=== PATIENT | female | born 1960 | race Caucasian/White ===

== ENCOUNTER 2019-08-27 14:55 | Inpatient (IN) | payer BC, OTHER ==
[~2019-08-27] VITALS: Ht 172 cm; Wt 117.0 kg
--- NOTE | 2019-08-27 15:22 | ED Chest Pain ---
General Stated Complaint: HIGH BP;SOA Source: patient, family (daughter via phone) Exam Limitations: no limitations History of Present Illness Date Seen by Provider: Aug 27, 2019 Time Seen by Provider: 15:09 Initial Comments Patient arrives the ER by private conveyance with her daughter and chief complaint of chest pain constant for the past 3 weeks substernal radiating to the left breast. She has no personal history of coronary disease but her father early of heart disease when she was still young. She denies recreational drug use. She has an occasional beer. She quit smoking one year ago by a pack pe r day. She denies a history of diabetes but does have hyperlipidemia and hypertension. She says her daughter knows all of her medications. The past 3 weeks she's went several times to [facility] emergency room and yesterday she was discharged after observation stay and serial troponins. She has not had a heart catheterization stents or heart attack. She does not have follow-up with virtual reality specialist. She follows with Dr. Kyle for primary care. She also noted before coming in that her blood pressure was very high 220/117 and her heart rate was elevated. Patient reports that he had multiple CTs of her chest as well as EKGs chest x-rays and a stress test but no heart catheterization. She said she did not have any follow-up and she was discharged. She thought she was going to [facility] and she says they told her just to go home. She says nitroglycerin which she tripped on her way here from [place] did help a little bit. She still rates her pain as a 9 out of 10. She says the Ativan and morphine also help her pain. Daughter relays the patient was in [facility] overnight Saturday and released Saturday after a negative stress test. Plan was to follow-up with primary care doctor tomorrow. She is put out on Symbicort and albuterol. She had a negative COVID-19 test on Saturday, 6 days ago. Plan was to get a CT of her chest outpatient. Allergies and Home Medications Allergies Coded Allergies: ibuprofen (Verified Allergy, Unknown, 08/27/19) Patient Home Medication List Home Medication List Reviewed: Yes Review of Systems Review of Systems Constitutional: No chills, No fever, No malaise EENTM: No Blurred Vision, No Double Vision Respiratory: Denies Cough, Denies Shortness of Air Cardiovascular: Chest Pain; Denies Edema Gastrointestinal: Denies Abdominal Pain, Denies Constipated, Denies Diarrhea, Denies Nausea Genitourinary: Denies Burning, Denies Discharge Musculoskeletal: No back pain, No joint pain Skin: No pruritus, No rash Psychiatric/Neurological: Denies Headache, Denies Numbness All Other Systems Reviewed Negative Unless Noted: Yes Past Tmqragi-Rlxioa-Mbaueu Hx Patient Social History Alcohol Use: Occasionally Uses Recreational Drug Use: No Smoking Status: Former Smoker Type Used: Cigarettes Former Smoker, Quit: Aug 09, 2018 Physical Exam Vital Signs Vital Signs - First Documented 08/27/19 08/27/19 15:00 16:18 Temp 36.9 Pulse 107 Resp 21 B/P (MAP) 162/103 (122) Pulse Ox 97 O2 Delivery Room Air O2 Flow Rate 2.00 Capillary Refill : Height, Weight, BMI Height: '" Weight: lbs. oz. kg; BMI Method: General Appearance: No Apparent Distress, WD/WN HEENT: PERRL/EOMI, TMs Normal, Normal ENT Inspection, Pharynx Normal, Moist Mucous Membranes Neck: Full Range of Motion, Normal Inspection, Non Tender Respiratory: No Chest Non Tender (Chest pain reproducible to direct palpation over the sternum); Lungs Clear, Normal Breath Sounds, No Accessory Muscle Use, No Respiratory Distress Cardiovascular: Regular Rate, Rhythm, Normal Peripheral Pulses Gastrointestinal: Normal Bowel Sounds, Non Tender, Soft Extremity: Normal Capillary Refill, Normal Inspection, No Pedal Edema Neurologic/Psychiatric: Alert, Oriented x3, No Motor/Sensory Deficits Skin: Normal Color, Warm/Dry Focused Exam Lactate Level 08/27/19 15:00: Lactic Acid Level 1.77 Lactic Acid Level Laboratory Tests Test 08/27/19 15:00 Lactic Acid Level 1.77 MMOL/L (0.50-2.00) Progress/Results/Core Measures Results/Orders Lab Results Laboratory Tests Test 08/27/19 15:00 Range/Units White Blood Count 11.3 H 4.3-11.0 10^3/uL Red Blood Count 4.42 4.35-5.85 10^6/uL Hemoglobin 13.0 11.5-16.0 G/DL Hematocrit 38 35-52 % Mean Corpuscular Volume 85 80-99 FL Mean Corpuscular Hemoglobin 29 25-34 PG Mean Corpuscular Hemoglobin Concent 35 32-36 G/DL Red Cell Distribution Width 14.8 H 10.0-14.5 % Platelet Count 264 130-400 10^3/uL Mean Platelet Volume 9.4 7.4-10.4 FL Neutrophils (%) (Auto) 65 42-75 % Lymphocytes (%) (Auto) 28 12-44 % Monocytes (%) (Auto) 6 0-12 % Eosinophils (%) (Auto) 1 0-10 % Basophils (%) (Auto) 0 0-10 % Neutrophils # (Auto) 7.4 1.8-7.8 X 10^3 Lymphocytes # (Auto) 3.2 1.0-4.0 X 10^3 Monocytes # (Auto) 0.7 0.0-1.0 X 10^3 Eosinophils # (Auto) 0.1 0.0-0.3 10^3/uL Basophils # (Auto) 0.0 0.0-0.1 10^3/uL Erythrocyte Sedimentation Rate 24 0-30 MM/HR Prothrombin Time 12.3 12.2-14.7 SEC INR Comment 0.9 0.8-1.4 Activated Partial Thromboplast Time 24 24-35 SEC D-Dimer 0.33 0.00-0.49 UG/ML Sodium Level 139 135-145 MMOL/L Potassium Level 4.1 3.6-5.0 MMOL/L Chloride Level 105 98-107 MMOL/L Carbon Dioxide Level 23 21-32 MMOL/L Anion Gap 11 5-14 MMOL/L Blood Urea Nitrogen 14 7-18 MG/DL Creatinine 0.72 0.60-1.30 MG/DL Estimat Glomerular Filtration Rate > 60 BUN/Creatinine Ratio 19 Glucose Level 165 H 70-105 MG/DL Lactic Acid Level 1.77 0.50-2.00 MMOL/L Calcium Level 8.9 8.5-10.1 MG/DL Corrected Calcium 9.0 8.5-10.1 MG/DL Magnesium Level 1.8 1.6-2.4 MG/DL Total Bilirubin 0.2 0.1-1.0 MG/DL Aspartate Amino Transf (AST/SGOT) 43 H 5-34 U/L Alanine Aminotransferase (ALT/SGPT) 75 H 0-55 U/L Alkaline Phosphatase 95 40-136 U/L Lactate Dehydrogenase 207 125-220 U/L Myoglobin 25.9 10.0-92.0 NG/ML Troponin I 0.270 H <0.028 NG/ML C-Reactive Protein High Sensitivity 0.75 H 0.00-0.50 MG/DL B-Type Natriuretic Peptide 64.4 <100.0 PG/ML Total Protein 7.3 6.4-8.2 GM/DL Albumin 3.9 3.2-4.5 GM/DL Lipase 59 8-78 U/L Procalcitonin 0.03 <0.10 NG/ML My Orders Orders - [place] Cbc With Automated Diff (08/27/19 15:17) Magnesium (08/27/19 15:17) Ekg Tracing (08/27/19:) Comprehensive Metabolic Panel (08/27/19 15:) Myoglobin Serum (08/27/19 15:17) Protime With Inr (08/27/19 15:) Partial Thromboplastin Time (08/27/19 15:17) O2 (08/27/19 15:17) Monitor-Rhythm Ecg Trace Only (08/27/19 15:17) Ed Iv/Invasive Line Start (08/27/19 15:17) Lipase (08/27/19 15:17) BNP (08/27/19 15:17) Troponin I (08/27/19 15:17) Nitroglycerin 0.4 Mg Btl 25's (Nitrostat (08/27/19 15:30) Aspirin Chewable Tablet (Baby Aspirin Ch (08/27/19 15:30) Ua Culture If Indicated (08/27/19 15:27) Drug Screen Stat (Urine) (08/27/19 15:27) Blood Culture (08/27/19 15:27) Lactic Acid Analyzer (08/27/19 15:27) Hs C Reactive Protein (08/27/19 15:27) Erythrocyte Sedimentation Rate (08/27/19 15:27) LDH (08/27/19 15:27) Procalcitonin (Pct) (08/27/19 15:27) Fibrin Degradation Products (08/27/19 15:00) Ed Iv/Invasive Line Start (08/27/19 16:03) Ns Iv 1000 Ml (Sodium Chloride 0.9%) (08/27/19 16:03) Morphine Injection (Morphine Injection (08/27/19 16:03) Chest 1 View, Ap/Pa Only (08/27/19 16:22) Enoxaparin Injection (Lovenox Injection) (08/27/19 16:45) Medications Given in ED Current Medications Medications Dose Ordered Sig/David Route Start Time Stop Time Status Last Admin Dose Admin Aspirin 324 mg ONCE ONCE PO 08/27/19 15:30 08/27/19 15:31 DC 08/27/19 15:37 324 MG Enoxaparin Sodium 120 mg ONCE ONCE SC 08/27/19 16:45 08/27/19 16:46 DC 08/27/19 17:00 120 MG Nitroglycerin 0.4 mg UD PRN SL 08/27/19 15:30 08/27/19 16:07 DC 08/27/19 16:06 0.4 MG Vital Signs/I&O 08/27/19 08/27/19 08/27/19 15:00 15:20 16:18 Temp 36.9 Pulse 107 Resp 21 B/P (MAP) 162/103 (122) Pulse Ox 97 90 O2 Delivery Room Air Room Air Nasal Cannula O2 Flow Rate 2.00 Progress Progress Note : Time: 15:30 Progress Note Because of the different story given by the patient and the daughter I suspect maybe some comprehension difficulty. Plan to get a CT angiogram, labs including a septic workup as well as cardiac workup. She is not having a fever for 3 weeks of pain and a negative stress test on Saturday points us to start. She had a negative COVID-19 screening 6 days ago however if no other answers found then I would not be against repeating it. Nitroglycerin for pain. 324 Milligrams aspirin ordered. Hold off on IV fluids until we have a suspected infectious source. Her blood pressure is only 160/100 presently however if it was as high as she says otherwise she would be with hypertensive emergency. We will continue to monitor. With a normal troponin should have a heart score 4 points and I would suggest observation. Initial ECG Impression Date: Aug 27, 2019 Initial ECG Impression Time: 15:00 Initial ECG Rate: 97 Initial ECG Rhythm: Normal Sinus Initial ECG Intervals: Normal Initial ECG Impression: Normal Initial ECG Comparisson: No Previous ECG Available Comment Normal sinus rhythm without ST elevation or depression. Diagnostic Imaging Diagonstic Imaging: Xray Plain Films/CT/US/NM/MRI: chest (1v) Comments No acute cardiopulmonary processes noted on one view chest x-ray. Reviewed: Reviewed by Me Departure Communication (Admissions) Time/Spoke to Admitting Phy: 16:31 Discussed the case with Dr. Duke, internal medicine and she agrees to observe the patient overnight. Time/Spoke to Consulting Phy: 16:30 Discussed the case with Dr. Juarez, cardiology and he would like a dose of Lovenox, nothing by mouth midnight and plan to get a heart catheter in the morning. Impression Primary Impression: Non-STEMI (non-ST elevated myocardial infarction) Disposition: ADMITTED INPATIENT Condition: Stable Admissions Decision to Admit Reason: Admit from ER (General) Decision to Admit/Date: Aug 27, 2019 Time/Decision to Admit Time: 16:15 [place] Aug 27, 2019 15:22
[2019-08-27 15:26] LABS: BASOPHILS % (AUTO) 0 % (0-10); EOSINOPHILS # (AUTO) 0.1 10^3/uL (0.0-0.3); EOSINOPHILS % (AUTO) 1 % (0-10); HEMATOCRIT 38 % (35-52); LYMPHOCYTES # (AUTO) 3.2 X 10^3 (1.0-4.0); LYMPHOCYTES % (AUTO) 28 % (12-44); MEAN CORPUSCULAR HEMOGLOBIN 29 PG (25-34); MEAN CORPUSCULAR HGB CONC 35 G/DL (32-36); MEAN CORPUSCULAR VOLUME 85 FL (80-99); MEAN PLATELET VOLUME 9.4 FL (7.4-10.4); MONOCYTES # (AUTO) 0.7 X 10^3 (0.0-1.0); MONOCYTES % (AUTO) 6 % (0-12); NEUTROPHILS # (AUTO) 7.4 X 10^3 (1.8-7.8); NEUTROPHILS % (AUTO) 65 % (42-75); PLATELET COUNT 264 10^3/uL (130-400); RED CELL DISTRIBUTION WIDTH 14.8 % (10.0-14.5); WHITE BLOOD COUNT 11.3 10^3/uL (4.3-11.0)
[2019-08-27] MEDS ORDERED: ASPIRIN 81 MG CHEW (CHILDREN'S ASA) PO ONE (15:30)
[2019-08-27 15:34] LABS: ALBUMIN 3.9 GM/DL (3.2-4.5)
[2019-08-27 15:35] LABS: CHLORIDE 105 MMOL/L (98-107); POTASSIUM 4.1 MMOL/L (3.6-5.0); SODIUM 139 MMOL/L (135-145)
[2019-08-27 15:36] LABS: CALCIUM 8.9 MG/DL (8.5-10.1)
[2019-08-27 15:37] LABS: GLUCOSE 165 MG/DL (70-105); TOTAL PROTEIN 7.3 GM/DL (6.4-8.2)
[2019-08-27] MEDS: NITROGLYCERIN 0.4 MG SL TABS BTL 25'S SL PRN ×5 (15:37→21:02)
[2019-08-27 15:38] LABS: CARBON DIOXIDE 23 MMOL/L (21-32)
[2019-08-27 15:39] LABS: BILIRUBIN,TOTAL 0.2 MG/DL (0.1-1.0)
[2019-08-27 15:40] LABS: ALKALINE PHOSPHATASE 95 U/L (40-136)
[2019-08-27 15:41] LABS: CREATININE SERUM 0.72 MG/DL (0.60-1.30); GFR ESTIMATED > 60
[2019-08-27 15:42] LABS: BUN/CREATININE RATIO 19
[2019-08-27 15:43] LABS: ALANINE AMINOTRANSFERASE 75 U/L (0-55); MAGNESIUM 1.8 MG/DL (1.6-2.4)
[2019-08-27 15:44] LABS: LIPASE 59 U/L (8-78)
[2019-08-27] MEDS ORDERED: NS IV 1000 ML 1,000 ML IV SCH (16:03)
[2019-08-27] MEDS ORDERED: morphine INJ 10 MG/ML 1ML (SYR OR VIAL) IVP STA (16:03)
[2019-08-27 16:13] LABS: FIBRIN DEGRADATION PRODUCTS 0.33 UG/ML (0.00-0.49); INR 0.9 (0.8-1.4); PROTHROMBIN TIME PATIENT 12.3 SEC (12.2-14.7)
[2019-08-27] MEDS ORDERED: ENOXAPARIN 60 MG/0.6 ML (LOVENOX) SYR SC ONE (16:45)
--- NOTE | 2019-08-27 16:56 | Diagnostic Imaging Report ---
INDICATION: Shortness of air. FINDINGS: Heart and lungs appear normal. No failure, effusion, or pneumothorax. IMPRESSION: Negative. Dictated by: Dictated on workstation # [id number]
[2019-08-27 17:24] VITALS: BP 154/94
--- NOTE | 2019-08-27 17:28 | NUR ---
This nurse called ED at 1868 requesting patients admission orders, I spoke with Disha ROBISON she stated that the orders would be sent up soon
--- NOTE | 2019-08-27 18:42 | NUR ---
This nurse called [facility] to ask for the admission orders to be sent up to me, there was no answer.
--- OUTSIDE RECORDS SUMMARY | 2019-08-27 19:41 | XMS REPORT | Continuity of Care Document ---
Demographics Preferred Language Unknown Marital Status Unknown Evangelical Affiliation Unknown Race Unknown Ethnic Group Unknown Author Organization Unknown Address Unknown Phone Unavailable Allergies There is no data. Medications There is no data. Problems There is no data. Procedures There is no data. Results Test Result Range Complete blood count (CBC) with automate d white blood cell (WBC) differential - 08/27/19 15:00 Blood leukocytes automated count (number/volume) 11.3 10*3/uL 4.3-11.0 Blood erythrocytes automated count (number/volume) 4.42 10*6/uL 4.35-5.85 Venous blood hemoglobin measurement (mass/volume) 13.0 g/dL 11.5-16.0 Blood hematocrit (volume fraction) 38 % 35-52 Automated erythrocyte mean corpuscular volume 85 [ foz_us] 80-99 Automated erythrocyte mean corpuscular h emoglobin (mass per erythrocyte) 29 pg 25-34 Automated erythrocyte mean corpuscular h emoglobin concentration measurement (mass/volume) 35 g/dL 32-36 Automated erythrocyte distribution width ratio 14. 8 % 10.0- 14.5 Automated blood platelet count (count/volume) 264 10*3/uL 130-400 Automated blood platelet mean volume measurement 9.4 [foz_us] 7.4-10.4 Automated blood neutrophils/100 leukocytes 65 % 42-75 Automated blood lymphocytes/100 leukocytes 28 % 12-44 Blood monocytes/100 leukocytes 6 % 0-12 Automated blood eosinophils/100 leukocytes 1 % 0-10 Automated blood basophils/100 leukocytes 0 % 0-10 Blood neutrophils automated count (number/volume) 7.4 10*3 1.8-7.8 Blood lymphocytes automated count (number/volume) 3.2 10*3 1.0-4.0 Blood monocytes automated count (number/volume) 0. 7 10*3 0.0-1.0 Automated eosinophil count 0.1 10*3/uL 0 .0-0.3 Automated blood basophil count (count/volume) 0.0 10*3/uL 0.0-0.1 Comprehensive metabolic panel - 08/27/19 15:00 Serum or plasma sodium measurement (moles/volume) 139 mmol/L 135-145 Serum or plasma potassium measurement (moles/volume) 4.1 mmol/L 3.6-5.0 Serum or plasma chloride measurement (moles/volume) 105 mmol/L 98-107 Carbon dioxide 23 mmol/L 21-32 Serum or plasma anion gap determination (moles/volume) 11 mmol/L 5-14 Serum or plasma urea nitrogen measurement (mass/volume ) 14 mg/dL 7-18 Serum or plasma creatinine measurement (mass/volume) 0.72 mg/dL 0.60-1.30 Serum or plasma urea nitrogen/creatinine mass ratio 19 NRG Serum or plasma creatinine measurement w ith calculation of estimated glomerular filtration rate > NRG Serum or plasma glucose measurement (mass/volume) 165 mg/dL 70-105 Serum or plasma calcium measurement (mass/volume) 8.9 mg/dL 8.5-10.1 Serum or plasma total bilirubin measurement (mass/volu me) 0.2 mg/dL 0.1-1.0 Serum or plasma alkaline phosphatase mt surement (enzymatic activity/volume) 95 U/L 40-136 Serum or plasma aspartate aminotransfera se measurement (enzymatic activity/volume) 43 U/L 5-34 Serum or plasma alanine aminotransferase measurement (enzymatic activity/volume) 75 U/L 0-55 Serum or plasma protein measurement (mass/volume) 7.3 g/dL 6.4-8.2 Serum or plasma albumin measurement (mass/volume) 3.9 g/dL 3.2-4.5 CALCIUM CORRECTED 9.0 mg/dL 8.5-10.1 Blood lactic acid measurement (moles/vol ume) - 08/27/19 15:00 Blood lactic acid measurement (moles/volume) 1.77 mmol/L 0.50-2.00 Magnesium - 08/27/19 15:00 Magnesium 1.8 mg/dL 1.6-2.4 Myoglobin, serum - 08/27/19 15:00 Myoglobin, serum 25.9 ng/mL 10.0-92.0 Serum or plasma troponin i.cardiac measu rement (mass/volume) - 08/27/19 15:00 Serum or plasma troponin i.cardiac measurement (mass/v olume) 0.270 ng/mL <0.028 Lipase - 08/27/19 15:00 Lipase 59 U/L 8-78 Erythrocyte sedimentation rate by zeenat gren method - 08/27/19 15:00 Erythrocyte sedimentation rate by westergren method 24 mm 0- 30 Serum ragweed IgE antibody assay - 08/26 15:00 Serum ragweed IgE antibody assay 207 U/L 125-220 PROCALCITONIN (PCT) - 08/27/19 15:00 PROCALCITONIN (PCT) 0.03 ng/mL <0.10 PT panel in platelet poor plasma by coag ulation assay - 08/27/19 15:00 Prothrombin time (PT) in platelet poor plasma by coagu lation assay 12.3 s 12.2-14.7 INR in platelet poor plasma or blood by coagulation as say 0.9 0.8-1.4 Activated partial thromboplastin time (a PTT) in platelet poor plasma bycoagulation assay - 08/27/19 15:00 Activated partial thromboplastin time (a PTT) in platelet poor plasma bycoagulation assay 24 s 24-35 Fibrin D-dimer FEU measurement in platel et poor plasma (mass/volume) - 08/27/19 15:00 Fibrin D-dimer FEU measurement in platelet poor plasma (mass/volume) 0.33 ug/mL 0.00-0.49 Serum or plasma lithium measurement (mol es/volume) - 08/27/19 15:00 BNP PT 64.4 pg/mL <100.0 Serum or plasma C reactive protein measu rement (mass/volume) - 08/27/19 15:00 Serum or plasma C reactive protein measurement (mass/v olume) 0.75 mg/dL 0.00-0.50 Encounters ACCT No. Visit Date/Time Discharge Status Pt. Type Provider Facility Loc./Unit Complaint [id number] 08/27/2019 15:27:00 Document Registration
[2019-08-27] MEDS ORDERED: CATHETER FLUSH 10 ML SYR IV PRN (19:45)
[2019-08-27] MEDS ORDERED: ACETAMINOPHEN 500 MG TAB (TYLENOL) PO PRN (19:45)
[2019-08-27] MEDS ORDERED: LACTATED RINGERS 1,000 ML IV SCH (19:45)
[2019-08-27 20:00] VITALS: BP 126/73
[2019-08-27] MEDS ORDERED: FUROSEMIDE 40 MG/4 ML INJ (LASIX) IVP PRN (21:15)
[2019-08-27] MEDS ORDERED: KETOROLAC 15 MG/ML VIAL IVP PRN (21:15)
--- OUTSIDE RECORDS SUMMARY | 2019-08-27 22:15 | XMS REPORT | Continuity of Care Document ---
Demographics Preferred Language Unknown Marital Status Unknown Muslim Affiliation Unknown Race Unknown Ethnic Group Unknown [...] protein measurement (mass/v olume) 0.75 mg/dL 0.00-0.50 Serum or plasma troponin i.cardiac measu rement (mass/volume) - 08/27/19 21:05 Serum or plasma troponin i.cardiac measurement (mass/v olume) 0.323 ng/mL <0.028 Serum or plasma lithium measurement (mol es/volume) - 08/27/19 21:09 BNP PT 69.8 pg/mL <100.0 Encounters ACCT No. Visit Date/Time Discharge Status Pt. Type Provider Facility Loc./Unit Complaint [id number] 08/27/2019 15:27:00 Document Registration
[2019-08-27] MEDS: LORazepam INJ 2 MG/ML (ATIVAN) VIAL IV PRN (22:18)
--- NOTE | 2019-08-27 23:28 | NUR ---
Spoke to Dr. Weeks about DVT prophylaxis- orders to wait until after heart cath to obtain orders for DVT prophylaxis.
[2019-08-28] VITALS (19 sets, daily range): BP systolic 103–166; BP diastolic 65–111
--- NOTE | 2019-08-28 00:45 | NUR ---
At the beginning of the night pt stated that her IV was bothering her every time she bent her arm. This RN checked placement of IV, IV intact and in place. I informed pt that I needed to go see my other pts then I would be rounding and backing machine operator to midnight to place a different IV and take the one in her AC out and pt had agreed she could wait. Went into pts room to check pts vital signs and change IV and pt had taken out her IV and had bleed all over her sheets. I asked pt what happened and pt stated "I took it out my damn self, it hurt too fucking bad so I just took it out". I apologized to pt for it taking longer that I orginally told her it would. Pt very upset and demanded she make her own bed, I tried to get pt to let me make her bed for her but pt insisted. Iv placed in forearm. Will continue to monitor pt.
[2019-08-28 03:44] LABS: BASOPHILS % (AUTO) 0 % (0-10); EOSINOPHILS # (AUTO) 0.2 10^3/uL (0.0-0.3); EOSINOPHILS % (AUTO) 2 % (0-10); HEMATOCRIT 35 % (35-52); HEMOGLOBIN 12.8 G/DL (11.5-16.0); LYMPHOCYTES # (AUTO) 3.5 X 10^3 (1.0-4.0); LYMPHOCYTES % (AUTO) 42 % (12-44); MEAN CORPUSCULAR HEMOGLOBIN 31 PG (25-34); MEAN CORPUSCULAR HGB CONC 36 G/DL (32-36); MEAN CORPUSCULAR VOLUME 86 FL (80-99); MEAN PLATELET VOLUME 9.7 FL (7.4-10.4); MONOCYTES # (AUTO) 0.5 X 10^3 (0.0-1.0); MONOCYTES % (AUTO) 5 % (0-12); NEUTROPHILS # (AUTO) 4.2 X 10^3 (1.8-7.8); NEUTROPHILS % (AUTO) 51 % (42-75); PLATELET COUNT 249 10^3/uL (130-400); RED CELL DISTRIBUTION WIDTH 14.6 % (10.0-14.5); WHITE BLOOD COUNT 8.3 10^3/uL (4.3-11.0)
[2019-08-28 03:50] LABS: CHLORIDE 104 MMOL/L (98-107); POTASSIUM 4.7 MMOL/L (3.6-5.0); SODIUM 135 MMOL/L (135-145)
[2019-08-28 03:51] LABS: ALBUMIN 3.4 GM/DL (3.2-4.5); CALCIUM 8.5 MG/DL (8.5-10.1)
[2019-08-28 03:53] LABS: GLUCOSE 122 MG/DL (70-105); TOTAL PROTEIN 8.4 GM/DL (6.4-8.2)
[2019-08-28 03:54] LABS: CARBON DIOXIDE 21 MMOL/L (21-32)
[2019-08-28 03:55] LABS: BILIRUBIN,TOTAL 0.2 MG/DL (0.1-1.0)
[2019-08-28 03:57] LABS: ALKALINE PHOSPHATASE 76 U/L (40-136); CHOLESTEROL 294 MG/DL (< 200); CREATININE SERUM 0.82 MG/DL (0.60-1.30)
[2019-08-28 03:58] LABS: BUN/CREATININE RATIO 18
[2019-08-28 03:59] LABS: HDL CHOLESTEROL 29 MG/DL (40-60)
[2019-08-28 04:00] LABS: ALANINE AMINOTRANSFERASE 67 U/L (0-55)
[2019-08-28 04:03] LABS: GFR ESTIMATED > 60
[2019-08-28 04:04] LABS: TRIGLYCERIDES 1619 MG/DL (<150); VLDL CHOLESTEROL 324 MG/DL (5-40)
[2019-08-28] MEDS ORDERED: BIEST (06:42)
[2019-08-28] MEDS ORDERED: PRD10T PO ×2 (06:42→12:41)
[2019-08-28] MEDS ORDERED: ACET-789 PO (06:42)
[2019-08-28] MEDS ORDERED: BUDE10.2 IH (06:42)
[2019-08-28] MEDS ORDERED: DICL100G18 TP (06:42)
[2019-08-28] MEDS ORDERED: ALPR0.5T PO (06:42)
[2019-08-28] MEDS ORDERED: RT-ALBUINH INH (06:42)
[2019-08-28] MEDS ORDERED: LIDOCAINE 1% INJ 20 ML 20 ML VIAL ONE (08:18)
[2019-08-28] MEDS ORDERED: fentaNYL INJECTION 100 MCG/2 ML AMP ONE ×2 (08:18→09:48)
[2019-08-28] MEDS ORDERED: MIDAZOLAM 5 MG/5 ML (VERSED) VIAL ONE ×2 (08:18→09:48)
[2019-08-28] MEDS ORDERED: HEParin (CATH LAB) 2,000 ML IV ONE (08:19)
--- NOTE | 2019-08-28 08:50 | Consultation-Cardiology ---
HPI-Cardiology Cardiology Consultation Date of Consultation 08/28/19 Date of Admission Time Seen by Provider: 08:46 Indication: chest pain HPI 58-year-old lady with history of hypertension, taking diltiazem. Previous smoker stopped smoking about a year ago. Has been having shortness of breath and chest pain for the past 3 weeks. Has been to [facility] twice, underwent stress test which was negative, came in to our hospital last night. Was having chest pain and shortness of breath having difficulty breathing. Denied any syncope or near syncopal episodes. Denied any claudications. Reported that she had COVID testing negative last week at [facility] noted to have mild elevation in troponin, still having some retrosternal chest pain and shortness of breath Home Medications & Allergies Allergies: Coded Allergies: ibuprofen (Verified Allergy, Unknown, 08/27/19) Home Medication List Reviewed: Yes YBY-Epdfom-Yylptv Hx Patient Social History Marital Status: Alcohol Use: Occasionally Uses Recreational Drug Use: No Smoking Status: Former Smoker Type Used: Cigarettes 2nd Hand Smoke Exposure: Yes Recent Foreign Travel: No Recent Infectious Disease Expo: No Recent Hopitalizations: Yes Past Medical History Discussed below Family Medical History Family Medical Hx Family history of atherosclerosis Family History: Patient reports no known family medical history. Review of Systems-General Review of Systems Constitutional: No chills, No fever, No malaise EENTM: see HPI, hoarseness Respiratory: see HPI; No cough; dyspnea on exertion; No hemoptysis, No orthopnea, No phlegm; short of breath; No stridor, No wheezing, No other Cardiovascular: see HPI, chest pain; No edema, No Hx of Intervention, No palpitations, No syncope, No vascular heart diseas, No other Gastrointestinal: no symptoms reported, see HPI, abdominal pain (RUQ) Genitourinary: no symptoms reported, see HPI Musculoskeletal: see HPI; No back pain, No joint pain Skin: see HPI; No pruritus, No rash Psychiatric/Neurological: See HPI; Denies Headache, Denies Numbness All Other Systems Reviewed Negative Unless Noted: Yes Reviewed Test Results Reviewed Test Results Lab Laboratory Tests Test 08/27/19 15:00 08/27/19 21:05 08/27/19 21:09 08/28/19 03:26 Range/Units White Blood Count 11.3 H 8.3 4.3-11.0 10^3/uL Red Blood Count 4.42 4.11 L 4.35-5.85 10^6/uL Hemoglobin 13.0 12.8 11.5-16.0 G/DL Hematocrit 38 35 35-52 % Mean Corpuscular Volume 85 86 80-99 FL Mean Corpuscular Hemoglobin 29 31 25-34 PG Mean Corpuscular Hemoglobin Concent 35 36 32-36 G/DL Red Cell Distribution Width 14.8 H 14.6 H 10.0-14.5 % Platelet Count 264 249 130-400 10^3/uL Mean Platelet Volume 9.4 9.7 7.4-10.4 FL Neutrophils (%) (Auto) 65 51 42-75 % Lymphocytes (%) (Auto) 28 42 12-44 % Monocytes (%) (Auto) 6 5 0-12 % Eosinophils (%) (Auto) 1 2 0-10 % Basophils (%) (Auto) 0 0 0-10 % Neutrophils # (Auto) 7.4 4.2 1.8-7.8 X 10^3 Lymphocytes # (Auto) 3.2 3.5 1.0-4.0 X 10^3 Monocytes # (Auto) 0.7 0.5 0.0-1.0 X 10^3 Eosinophils # (Auto) 0.1 0.2 0.0-0.3 10^3/uL Basophils # (Auto) 0.0 0.0 0.0-0.1 10^3/uL Erythrocyte Sedimentation Rate 24 0-30 MM/HR Prothrombin Time 12.3 12.2-14.7 SEC INR Comment 0.9 0.8-1.4 Activated Partial Thromboplast Time 24 24-35 SEC D-Dimer 0.33 0.00-0.49 UG/ML Sodium Level 139 135 135-145 MMOL/L Potassium Level 4.1 4.7 3.6-5.0 MMOL/L Chloride Level 105 104 98-107 MMOL/L Carbon Dioxide Level 23 21 21-32 MMOL/L Anion Gap 11 10 5-14 MMOL/L Blood Urea Nitrogen 14 15 7-18 MG/DL Creatinine 0.72 0.82 0.60-1.30 MG/DL Estimat Glomerular Filtration Rate > 60 > 60 BUN/Creatinine Ratio 19 18 Glucose Level 165 H 122 H 70-105 MG/DL Lactic Acid Level 1.77 0.50-2.00 MMOL/L Calcium Level 8.9 8.5 8.5-10.1 MG/DL Corrected Calcium 9.0 9.0 8.5-10.1 MG/DL Magnesium Level 1.8 1.6-2.4 MG/DL Total Bilirubin 0.2 0.2 0.1-1.0 MG/DL Aspartate Amino Transf (AST/SGOT) 43 H 44 H 5-34 U/L Alanine Aminotransferase (ALT/SGPT) 75 H 67 H 0-55 U/L Alkaline Phosphatase 95 76 40-136 U/L Lactate Dehydrogenase 207 125-220 U/L Myoglobin 25.9 10.0-92.0 NG/ML Troponin I 0.270 H 0.323 *H 0.289 H <0.028 NG/ML C-Reactive Protein High Sensitivity 0.75 H 0.00-0.50 MG/DL B-Type Natriuretic Peptide 64.4 69.8 <100.0 PG/ML Total Protein 7.3 8.4 H 6.4-8.2 GM/DL Albumin 3.9 3.4 3.2-4.5 GM/DL Lipase 59 8-78 U/L Procalcitonin 0.03 <0.10 NG/ML Triglycerides Level 1619 H <150 MG/DL Cholesterol Level 294 H < 200 MG/DL LDL Cholesterol Direct 109 1-129 MG/DL VLDL Cholesterol 324 H 5-40 MG/DL HDL Cholesterol 29 L 40-60 MG/DL Physical Exam Physical Exam Vital Signs Vital Signs - First Documented 08/27/19 08/27/19 15:00 16:18 Temp 36.9 Pulse 107 Resp 21 B/P (MAP) 162/103 (122) Pulse Ox 97 O2 Delivery Room Air O2 Flow Rate 2.00 Capillary Refill : Less Than 3 Seconds Height, Weight, BMI Height: '" Weight: lbs. oz. kg; 39.00 BMI Method: General Appearance: No Apparent Distress, WD/WN HEENT: PERRL/EOMI, TMs Normal, Normal ENT Inspection, Pharynx Normal, Moist Mucous Membranes Neck: Full Range of Motion, Normal Inspection, Non Tender Respiratory: Lungs Clear, Normal Breath Sounds, No Accessory Muscle Use, No Respiratory Distress Cardiovascular: Regular Rate, Rhythm, Normal Peripheral Pulses, Systolic Murmur Gastrointestinal: Normal Bowel Sounds, Soft, Tenderness (in the epigastric and right upper quadrant area) Extremity: Normal Capillary Refill, Normal Inspection, No Pedal Edema Neurologic/Psychiatric: Alert, Oriented x3, No Motor/Sensory Deficits Skin: Normal Color, Warm/Dry A/P-Cardiology Admission Diagnosis Chest pain Shortness of breath Abdominal pain Hoarseness Assessment/Plan Chest pain resembling angina associated with shortness of breath, mild elevation troponin, nondiagnostic EKG changes. Multiple risk factors recommended cardiac catheterization possible PTCA. Procedure was explained in length all pros and cons were explained. Abdominal pain, mild epigastric tenderness and right upper quadrant tenderness. Consider ultrasound of the abdomen. Shortness of breath, chest x-ray is negative. Planning for cardiac catheterization Hoarseness, unknown etiology, consider ENT evaluation History of tobaccoism until last year, reported stopped smoking last year. Encouraged to continue with smoking cessation. Hypertension, taking diltiazem as an outpatient. Monitor blood pressure Hyperlipidemia/hypertriglyceridemia. We'll initiate fenofibrate and evaluate tolerance and response Family history of atherosclerosis Obesity, BMI 39, discussed weight loss Clinical Quality Measures DVT/VTE Risk/Contraindication: Risk Factor Score Per Nursin RFS Level Per Nursing on Admit: 3=High ANNI AMOS MD Aug 28, 2019 8:50 am
--- NOTE | 2019-08-28 08:51 | Cardiac Procedure Note-CS/ASA ---
Pre-Procedure Note Pre-Op Procedure Note H&P Reviewed The H&P was reviewed, patient examined and no changes noted. Date H&P Reviewed: Aug 28, 2019 Time H&P Reviewed: 08:51 Conscious Sedation Pre-Proced Time 08:51 ASA Score 3 For ASA 3 and 4: Consider anesthesia and medical clearance. Also, for patients with a history of failed moderate sedation consider anesthesia. Airway Lungs Heart ASA score ASA 1: a normal healthy patient ASA 2: a patient with a mild systemic disease (mid diabetes, controlled hypertension, obesity x ASA 3: a patient with a severe systemic disease that limits activity (angina, COPD, prior Myocardial infarction) ASA 4: a patient with an incapacitating disease that is a constant threat to life (CHF, renal failure) ASA 5: a moribund patient not expected to survive 24 hrs. (ruptured aneurysm) ASA 6: a declared brain- patient whose organs are being harvested. For emergent operations, add the letter E after the classification Mallampati Classification Grade 3 Sedation Plan Analgesia, Amnesia, Plan communicated to team members, Discussed options with patient/fam, Discussed risks with patient/fam The patient is an appropriate candidate to undergo the planned procedure, sedation, and anesthesia. The patient immediately re-assessed prior to indication. ANNI AMOS MD Aug 28, 2019 8:51 am
[2019-08-28] MEDS ORDERED: NITRO DRIP 25000 MCG/D5W 250 ML IV ONE ×2 (08:57→09:26)
[2019-08-28] MEDS ORDERED: ENALAPRILAT 1.25 MG/1 ML (VASOTEC) 1 ML VIAL IV ONE (08:59)
[2019-08-28] MEDS ORDERED: meTOprolol 5 MG/5 ML (LOPRESSOR) VIAL ONE ×3 (08:59→10:22)
[2019-08-28] MEDS ORDERED: ASPIRIN E.C. 81 MG (ECOTRIN) TAB PO SCH (09:00)
[2019-08-28] MEDS ORDERED: HEParin 1000 UNIT/ML (10ML VIAL) FOR BOLUS ONE (09:01)
[2019-08-28] MEDS ORDERED: ATROPINE INJECTION 1 MG/10 ML SYR (ABBOTT) ONE (09:05)
[2019-08-28] MEDS ORDERED: EPTIFIBATIDE BOLUS 20 ML IV ONE (09:24)
[2019-08-28] MEDS ORDERED: NS IV 1000 ML 1,000 ML ONE (09:50)
[2019-08-28] MEDS ORDERED: EPTIFIBATIDE DRIP 100 ML IV ONE (10:00)
[2019-08-28] MEDS ORDERED: CLOPIDOGREL 300 MG (PLAVIX) TABLET PO ONE (10:07)
[2019-08-28] MEDS ORDERED: ASPIRIN 325 MG (5 GR) TABLET ONE (10:07)
[2019-08-28] MEDS ORDERED: PATIENT MAY USE OWN MEDS, ALL PO SCH (10:15)
[2019-08-28] MEDS ORDERED: FAMOTIDINE 20MG/2ML IV (PEPCID) ONE (10:22)
[2019-08-28] MEDS ORDERED: ONDANSETRON 4 MG/2 ML (SDV) Z0FRAN ONE (10:24)
--- NOTE | 2019-08-28 10:35 | NUR ---
NOTIFIED BY ESTRADA HAMILTON THAT 508 IS BEING TRANSFERRED TO ICU ROOM 12. WOOD TILE INSTALLER HERE AND THIS RN GIVING REPORT TO RICKI PHAM AT THIS TIME. WHEN PATIENT GETS BACK FROM HEART CATH PATIENT WILL GO STRAIGHT TO [facility]LE INSTALLER[facility] CARE.
[2019-08-28] MEDS: NS IV 1000 ML 1,000 ML IV SCH ×2 (11:23→20:09)
[2019-08-28] MEDS: EPTIFIBATIDE DRIP 100 ML IV SCH ×3 (11:24→20:02)
[2019-08-28] MEDS: NITRO DRIP 25000 MCG/D5W 250 ML IV SCH (11:25)
[2019-08-28] MEDS: NITROPRUSSIDE INJECTION 50 MG in D5W IV SOLUTION (EXCEL) 250 ML IV SCH (11:25)
--- NOTE | 2019-08-28 11:30 | NUR ---
THIS NURSE NOTIFIED DR AMOS PT IS C/O CHEST PAIN AND SBP IS NOW IN THE 140S. THIS NURSE RESTARTED PT ON NITRO DRIP PER PROTOCOL. DR AMOS SAID PT IS EXPECTED TO HAVE CHEST PAIN. PRN MORPHINE IS AVAILABLE IF PT NEEDS IT. INTEGRILIN DRIP IS TO RUN FOR 24 HOURS. WILL CONTINUE TO MONITOR.
--- NOTE | 2019-08-28 12:28 | History & Physical-Hospitalist ---
History of Present Illness HPI/Chief Complaint This is a 58-year-old white female who is admitted with chest pain of about 3 weeks' duration off and on. At the time my interview she is status post heart catheter with balloon and then stent placement to the right coronary artery first a very tight occlusion. This was complicated by ST segment elevation and a bump in her troponin. Patient currently is somnolent having had medications for sedation for her heart catheter. Source: RN/, old records Exam Limitations: clinical condition Date Seen 08/28/19 Time Seen by a Provider: 12:15 Attending Physician Kayli Duke MD PCP Referring Physician Date of Admission Aug 27, 2019 at 16:36 Home Medications & Allergies Home Medications Reviewed patient Home Medication Reconciliation performed by pharmacy medication reconciliations health record technician and/or nursing. Patients Allergies have been reviewed. Allergies Allergies Coded Allergies ibuprofen (Verified Allergy, Unknown, 08/27/19) Past Beaqljx-Rlqgtu-Hzhrjs Hx Past Med/Social Hx: Reviewed Nursing Past Med/Soc Hx Patient Social History Marrital Status: Alcohol Use: Occasionally Uses Alcohol Beverage of Choice: Beer Recreational Drug Use: No Smoking Status: Former Smoker Former Smoker, Quit: Aug 09, 2018 Type Used: Cigarettes 2nd Hand Smoke Exposure: Yes Recent Foreign Travel: No Contact w/other who traveled: No Recent Hopitalizations: Yes Recent Infectious Disease Expo: No Seasonal Allergies Seasonal Allergies: No Past Medical History Cardiac: Hypertension Hysterectomy History of Blood Disorders: No Family History Patient reports no known family medical history. Review of Systems ROS-Unable to Obtain: Patient is sedated and somnolent Constitutional: see HPI Physical Exam Physical Exam Vital Signs Vital Signs - First Documented 08/27/19 08/27/19 15:00 16:18 Temp 36.9 Pulse 107 Resp 21 B/P (MAP) 162/103 (122) Pulse Ox 97 O2 Delivery Room Air O2 Flow Rate 2.00 Capillary Refill : Less Than 3 Seconds Height, Weight, BMI Height: '" Weight: lbs. oz. kg; 39.00 BMI Method: General Appearance: Obese Neck: Limited Range of Motion Respiratory: Chest Non Tender, Lungs Clear, Normal Breath Sounds, No Accessory Muscle Use, No Respiratory Distress Cardiovascular: Regular Rate, Rhythm, No Gallop, No Murmur, Normal Peripheral Pulses Gastrointestinal: Normal Bowel Sounds, Soft Neurologic/Psychiatric: Other (Sedated with sonorous respirations and apnea) Skin: Normal Color, Warm/Dry Results Results/Procedures Labs Laboratory Tests 08/27/19 15:00 08/28/19 03:26 Patient resulted labs reviewed. Imaging: Reviewed Imaging Report Assessment/Plan Admission Diagnosis Chest pain status post heart catheter with intervention with elevated troponin Persistent ST segment elevation felt to be most likely secondary to distal thrombus from intervention Morbid obesity be most likely with obstructive sleep apnea Hyperlipidemia with hypertriglyceridemia started on Lopid Tobaccoism curtailed Probable type II diabetes Severe hypertension currently on nitro drip Plan per cardiology to start statins Lopid for Hytrin hypertriglyceridemia check A1c and consider pulmonary consult for sleep apnea Admission Status: Inpatient Order (span 2 midnights) Reason for Inpatient Admission: Multiple comorbidities Clinical Quality Measures DVT/VTE Risk/Contraindication: Risk Factor Score Per Nursin RFS Level Per Nursing on Admit: 3=High KHRIS ADEN MD Aug 28, 2019 12:28
[2019-08-28] MEDS ORDERED: OMEP20CA18 PO (12:41)
[2019-08-28] MEDS ORDERED: FAMO20TA5 PO (12:41)
[2019-08-28] MEDS ORDERED: TRAM50TA3 PO (12:41)
[2019-08-28] MEDS ORDERED: DILT120T3 PO (12:41)
[2019-08-28] MEDS ORDERED: ERGO50006 PO (12:41)
[2019-08-28] MEDS ORDERED: ZOLP10TA PO (12:41)
[2019-08-28] MEDS ORDERED: CARI350T27 PO (12:41)
[2019-08-28] MEDS ORDERED: ONDA4TAB11 PO (12:41)
[2019-08-28] MEDS ORDERED: PROM25TA14 PO (12:41)
[2019-08-28] MEDS ORDERED: PANT40TA3 PO (12:41)
[2019-08-28] MEDS ORDERED: CELE-63 PO (12:41)
[2019-08-28] MEDS ORDERED: ALPR0.5T7 PO (12:41)
--- NOTE | 2019-08-28 12:42 | NUR ---
SPOKE WITH THE PATIENTS DAUGHTER ALYCE (THE PT HAD JUST RETURNED FROM THE ENERGY CONSERVATION TECHNICIAN AND WAS UNABLE TO GIVE ME ANY INFORMATION) AND WENT THRU THE EXT MED HISTORY TO COMPLETE THE MED REC ONLY A COUPLE MEDICATIONS WERE BROUGHT IN WITH THE PT AND THEY WERE ENTERED ON THE MED REC BY A NURSE THIS AM- NONE OF THE OTHER MEDICATIONS ON THE EXT MED HISTORY WERE ADDED TO THE MED REC. WHEN I SPOKE WITH ALYCE SHE CONFIRMED THESE OTHER MEDS AND I INCLUDED THEM ON THE MED REC THE PT USES A HORMONE REPLACEMENT/THERAPY MEDICATION THAT IS COMPOUNDED AT [facility] AND SHE DID BRING IT WITH HER (THE NAME ON THE PRESCRIPTION SAYS "WALESKA BERRIOS" WHEN I ASKED ALYCE ABOUT THIS SHE SAYS THE PT HAS A COMMON LAW MARRIAGE SO SHE GOES BY 2 DIFFERENT NAMES) IT WAS LAST FILLED ON 06-29-2019 #30
--- NOTE | 2019-08-28 13:37 | Cardiac Cath Report ---
Cardiac Cath Report Physician (s)/Cotton Program Technician (s) Physician ANNI AMOS MD Pre-Procedure Diagnosis Pre-Procedure Diagnosis: non-ST elevation myocardial infarction Post-Procedure Note Procedure Start Date: Aug 28, 2019 Name of Procedure: Left heart catheterization Left ventriculogram Stent to the right coronary artery IVUS to the right coronary artery Findings/Procedure Note PROCEDURE NOTE: 58-year-old lady admitted with acute chest pain, mild elevation in troponin, minimal EKG changes. Had multiple risk factor continue to have recurrent chest pain decided to proceed with cardiac catheterization possible PTCA. After explaining the procedure to the patient, all pros and cons were explained, all questions were answered. The patient signed the consent and then she was placed on the cardiac catheterization laboratory. Groin was prepped SL fashion local anesthesia was used. Sheath placed in the right femoral artery. Taylor right and left catheter were used to access the coronary system. Pigtail was used to access the left ventricular cavity. Left ventriculogram was done Patient was given 6000 units of heparin, FR guide was advanced to the right coronary artery has a long severe stenosis. BMW wire was advanced and marked distally. Predilatation with balloon was done and initially with minimal balloon inflation patient has significant ST elevation in the inferior leads. Balloon was deflated and removed showed C requiring to the lesion. Appear to be soft with thrombus formation. I proceeded with deployment of Mikala 3 x 23 mm stent postdilated with 3.5 balloon. Proximal to the stent appeared to have significant lesion I deployed in overlapping stent 3.5 x 12 mm Mikala stent postdilated the whole segment both stents with a 3.5 balloon up to 3.6 mm. After deflating the balloon patient continued to have ST elevation with chest pain. I gave her interim coronary nitroglycerin and waited pain did not relieve. The wire was removed and the guide was removed and she was started on nitroglycerin drip, continue to have chest pain with ST elevation subsequently I decided to readdress the guide and did angiogram showing excellent results. I was concerned about possible dissection. I advanced the BMW wire again and advanced IVUS catheter and did the run to the area of the stent showing no dissection with good deployment with no thrombus within the stent, the distal edge of the stent is clear. I readvanced the IVUS camera all the way to the distal RCA and did the second drawn and evaluated for any distal dissection caused by the wire. No dissection was noted, good flow was noted through the coronaries, continue to have chest pain with ST elevation. Patient was started on Integrilin drip and given a second dose of heparin 2000 unit for a total of 8000 units of heparin. Sheath was removed and patient was severely hypertensive and started on nitroglycerin drip and nitroprusside drip FINDINGS: Hemodynamics LV 186/18, end-diastolic pressure of 18 Aorta 190/101 mean of 121 ANATOMY: Left Main is free of obstructive disease Left Anterior Descending has mild disease nonobstructive disease Left Circumflex has mild proximal disease nonobstructive disease Right Coronory Artery has severe stenosis in the midright coronary artery/subtotal occlusion, balloon angioplasty was done showing immediate recoiling although there was no resistant to inflating the balloon. Deployment of 2 overlapping stent distally 3 x 23 and proximally 3.5 x 12 oh stents were expanded to 3.6 mm, patient continued to have chest pain with ST elevation in the inferior leads. Started on nitroglycerin drip, Integrilin drip, given intracoronary nitroglycerin then IVUS was done with 2 runs to the stent area proximal and distal ant to the distal right coronary artery and the bifurcation showing no complication. LV Gram was done showing prominent left ventricle, systolic function is preserved estimated ejection fraction 50 percent CONCLUSION: 1. Severe midright coronary artery stenosis/subtotal occlusion with a thrombus, balloon angioplasty and deployment of 2 overlapping stent followed by IVUS showing excellent deployment using Mikala 3 x 23 and 3.5 x 12 mm both stents were expanded to 3.6 mm. Patient continued to have chest pain, started on nitroglycerin drip and Integrilin drip. 2. Mild stenosis in the proximal circumflex artery nonobstructive disease, mild disease in the mid LAD 3. Slightly prominent left ventricle with preserved systolic function, estimated ejection fraction 50 percent DISCUSSION AND RECOMMENDATION: Patient received aspirin, Plavix, started on Lopid and fish oil in addition to Protonix. She is currently on Integrilin for the next 24 hours. Anesthesia Type: Conscious Sedation Estimated blood loss (mL): 45 ml Contrast Amount: 190 ml Total Radiation Dose: 2197 mGy Post-Procedure Diagnosis Post-operative diagnosis: Non-ST elevation myocardial infarction Coronary artery disease Hypertension Hyperlipidemia/hypertriglyceridemia ANNI AMOS MD Aug 28, 2019 13:37
[2019-08-28] MEDS: ONDANSETRON 4 MG/2 ML (SDV) Z0FRAN IVP PRN ×2 (15:38→23:18)
[2019-08-28] MEDS: morphine INJ 4 MG/ML 1 ML (VIAL/SYRINGE) IV PRN ×2 (15:38→21:33)
[2019-08-28] MEDS: GEMFIBROZIL 600 MG (LOPID) TAB PO SCH (16:44)
[2019-08-28] MEDS: OMEGA 3 (FISH OIL) 1000 MG CAP PO SCH (19:14)
[2019-08-28] MEDS: meTOprolol TARTRATE 50 MG (LOPRESSOR) TAB PO SCH (21:32)
--- NOTE | 2019-08-28 21:51 | NUR ---
This pt has had c/o sore throat going on 3 days now as stated by patient. Pt's tongue is swollen and has white patches covering it along with subjective c/o painful/troubled swallowing. This nurse notified Tele-ICU at this time. New orders received.
[2019-08-28] MEDS: NYSTATIN ORAL SUSP 5 ML UDC PO SCH (23:18)
[2019-08-29] VITALS (21 sets, daily range): BP systolic 113–176; BP diastolic 61–114
[2019-08-29] MEDS: EPTIFIBATIDE DRIP 100 ML IV SCH ×2 (00:59→06:57)
[2019-08-29 03:25] LABS: BASOPHILS % (AUTO) 0 % (0-10); EOSINOPHILS # (AUTO) 0.5 10^3/uL (0.0-0.3); EOSINOPHILS % (AUTO) 4 % (0-10); HEMATOCRIT 33 % (35-52); HEMOGLOBIN 11.4 G/DL (11.5-16.0); LYMPHOCYTES % (AUTO) 17 % (12-44); MEAN CORPUSCULAR HEMOGLOBIN 29 PG (25-34); MEAN CORPUSCULAR HGB CONC 35 G/DL (32-36); MEAN CORPUSCULAR VOLUME 85 FL (80-99); MEAN PLATELET VOLUME 9.6 FL (7.4-10.4); MONOCYTES # (AUTO) 0.8 X 10^3 (0.0-1.0); MONOCYTES % (AUTO) 6 % (0-12); NEUTROPHILS % (AUTO) 73 % (42-75); PLATELET COUNT 261 10^3/uL (130-400); RED CELL DISTRIBUTION WIDTH 13.9 % (10.0-14.5); WHITE BLOOD COUNT 12.4 10^3/uL (4.3-11.0)
[2019-08-29 03:35] LABS: ALBUMIN 3.6 GM/DL (3.2-4.5); CHLORIDE 99 MMOL/L (98-107); POTASSIUM 4.3 MMOL/L (3.6-5.0); SODIUM 134 MMOL/L (135-145)
[2019-08-29 03:36] LABS: CALCIUM 8.3 MG/DL (8.5-10.1)
[2019-08-29 03:37] LABS: GLUCOSE 132 MG/DL (70-105); TOTAL PROTEIN 6.4 GM/DL (6.4-8.2)
[2019-08-29 03:38] LABS: CARBON DIOXIDE 22 MMOL/L (21-32)
[2019-08-29 03:39] LABS: BILIRUBIN,TOTAL 0.5 MG/DL (0.1-1.0)
[2019-08-29 03:41] LABS: ALKALINE PHOSPHATASE 71 U/L (40-136); CREATININE SERUM 0.72 MG/DL (0.60-1.30); GFR ESTIMATED > 60
[2019-08-29 03:42] LABS: BUN/CREATININE RATIO 15
[2019-08-29 03:44] LABS: ALANINE AMINOTRANSFERASE 59 U/L (0-55)
[2019-08-29] MEDS: GEMFIBROZIL 600 MG (LOPID) TAB PO SCH ×2 (06:06→16:23)
[2019-08-29] MEDS: NYSTATIN ORAL SUSP 5 ML UDC PO SCH ×4 (06:06→23:42)
[2019-08-29] MEDS: ONDANSETRON 4 MG/2 ML (SDV) Z0FRAN IVP PRN (06:07)
[2019-08-29] MEDS: NS IV 1000 ML 1,000 ML IV SCH ×2 (06:07→16:23)
[2019-08-29] MEDS: OMEGA 3 (FISH OIL) 1000 MG CAP PO SCH ×2 (08:58→18:05)
[2019-08-29] MEDS: meTOprolol TARTRATE 50 MG (LOPRESSOR) TAB PO SCH ×2 (08:58→20:44)
[2019-08-29] MEDS: CLOPIDOGREL 75 MG (PLAVIX) TABLET PO SCH (08:58)
[2019-08-29] MEDS: ASPIRIN E.C. 81 MG (ECOTRIN) TAB PO SCH (08:58)
[2019-08-29] MEDS: PANTOPRAZOLE 40 MG (PROTONIX) TAB PO SCH (08:58)
--- NOTE | 2019-08-29 09:04 | Progress Note - Hospitalist ---
Subjective HPI/CC On Admission Date Seen by Provider: Aug 29, 2019 Time Seen by Provider: 08:49 This is a 58-year-old white female who is admitted with chest pain of about 3 weeks' duration off and on. At the time my interview she is status post heart catheter with balloon and then stent placement to the right coronary artery firs t a very tight occlusion. This was complicated by ST segment elevation and a bump in her troponin. Patient currently is somnolent having had medications for sedation for her heart catheter. Subjective/Events-last exam pt reports having some nausea this morning and also being treated for thrush. She states she is unaware that she had a heart attack but does not remember much after her cath yesterday. She is also requesting discharge home. She is still on an Integrilin gtt. She complains of lower extremity edema and BLAIR for the last month. Focused Exam Lactate Level 08/27/19 15:00: Lactic Acid Level 1.77 Objective Exam Vital Signs Vital Signs Date Time Temp Pulse Resp B/P (MAP) Pulse Ox O2 Delivery O2 Flow Rate FiO2 08/29/19 06:57 75 165/100 08/29/19 06:00 23 Room Air 08/29/19 02:00 95 08/28/19 20:00 08/28/19 20:00 37.0 Capillary Refill : Less Than 3 Seconds General Appearance: No Apparent Distress, Obese Respiratory: Lungs Clear, No Accessory Muscle Use, No Respiratory Distress Cardiovascular: Regular Rate, Rhythm, No Murmur Extremity: No Calf Tenderness, No Pedal Edema Neurologic/Psychiatric: Alert, Oriented x3 Skin: Tattoos/Piercings Results/Procedures Lab Laboratory Tests 08/29/19 03:00 Patient resulted labs reviewed. Imaging: Reviewed Imaging Report Assessment/Plan Assessment and Plan Assess & Plan/Chief Complaint NSTEMI status post heart catheter with intervention on 08/28/2019, troponin now up further today Persistent ST segment elevation felt to be most likely secondary to distal thrombus from intervention, continue Integrilin gtt per cardiology BLAIR- worsening over the past month, concern for CHF, echo done pending read Morbid obesity/like OXANA- Consult pulm HTN- Was on nitro gtt Hyperlipidemia with hypertriglyceridemia started on Lopid and Lipitor Tobaccoism- quit smoking one year ago Probable type II diabetes, fasting blood sugar was 132 this morning, a1c pending Thrush- continue Nystatin per eICU transaminitis- ?KLEIN vs congestion Clinical Quality Measures DVT/VTE Risk/Contraindication: Risk Factor Score Per Nursin RFS Level Per Nursing on Admit: 3=High JUAN PARKER MD Aug 29, 2019 09:04
[2019-08-29] MEDS: NITROPRUSSIDE INJECTION 50 MG in D5W IV SOLUTION (EXCEL) 250 ML IV SCH (10:55)
[2019-08-29] MEDS: NITRO DRIP 25000 MCG/D5W 250 ML IV SCH (10:55)
--- NOTE | 2019-08-29 11:37 | Cardiology Progress Note ---
Subjective Date Seen by Provider: Aug 29, 2019 Time Seen by Provider: 11:35 Subjective/Events-last exam Patient is feeling better today, still having some chest discomfort, headache and leg pain. Mild shortness of breath. Review of Systems General: No Chills, No Night Sweats, No Fatigue, No Malaise, No Appetite, No Other HEENT: No Head Aches, No Visual Changes, No Eye Pain, No Ear Pain, No Dysphasia, No Sinus Congestion, No Post Nasal Drip, No Sore Throat, No Other Pulmonary: Dyspnea; No Cough, No Pleuritic Chest Pain, No Other Cardiovascular: Chest Pain; No: Palpitations, Orthopnea, Paroxysmal Noc. Dyspnea, Edema, Lt Headedness, Other Focused Exam Lactate Level 08/27/19 15:00: Lactic Acid Level 1.77 Objective-Cardiology Exam Last Set of Vital Signs Vital Signs 08/28/19 08/28/19 08/29/19 18:00 20:00 10:00 Temp 37.0 Pulse 64 Resp 15 B/P (MAP) 113/64 (80) Pulse Ox 96 O2 Delivery Room Air O2 Flow Rate 3.00 Capillary Refill : Less Than 3 Seconds I&O Intake and Output 08/29/19 00:00 Intake Total 750 ml Output Total 200 ml Balance 550 ml Intake Oral 650 ml IV Total 100 ml Output Urine Total 200 ml # Voids 5 # Urine Diapers 1 General: Alert, Oriented X3, Cooperative HEENT: Atraumatic, PERRLA Neck: Supple, No JVD, No Thyromegaly Lungs: Clear to Auscultation, Normal Air Movement Heart: Regular Rate, Normal S1, Normal S2, No Murmurs Abdomen: Normal Bowel Sounds, Soft, No Tenderness, No Hepatosplenomegaly, No Masses Extremities: No Clubbing, No Cyanosis, No Edema, Normal Pulses, No Tenderness/Swelling Skin: No Rashes, No Breakdown, No Significant Lesion Neuro: Normal Gait, Normal Speech, Strength at 5/5 X4 Ext, Normal Tone, Sensation Intact Psych/Mental Status: Mental Status NL, Mood NL Results Lab Laboratory Tests 08/29/19 03:00 A/P-Cardiology Admission Diagnosis Chest pain Shortness of breath Abdominal pain Hoarseness Assessment/Plan Unstable angina, coronary artery disease status post complex intervention to the right coronary artery as described below. Continue to maximize medical therapy, wean her off nitroglycerin drip, adding lisinopril. Monitor tolerance and response Coronary artery disease status post cardiac catheterization showing subtotal occlusion in the midright coronary artery, complex intervention with 2 stents deployment in the right coronary artery using Mikala 3 x 23 and 3.5 x 12 expanded to 3.6 mm with excellent angiographic results. Patient had chest pain, had ST elevation in the inferior leads that appear to be settling down, still h ave some residual elevation. Had a heavy thrombus burden probably distal embolization. Continue on aspirin and Plavix, will finish Integrilin drip later today. Abdominal pain, mild epigastric tenderness and right upper quadrant tenderness. Consider ultrasound of the abdomen. Shortness of breath, chest x-ray is negative. Hoarseness, unknown etiology, oral thrush, slightly better today. History of tobaccoism until last year, reported stopped smoking last year. Encouraged to continue with smoking cessation. Hypertension, poor control, started on metoprolol, added lisinopril today, keep Cardizem on hold and I will consider adding that later Hyperlipidemia/hypertriglyceridemia. We'll initiate fenofibrate and evaluate tolerance and response Family history of atherosclerosis Obesity, BMI 39, discussed weight loss Clinical Quality Measures DVT/VTE Risk/Contraindication: Risk Factor Score Per Nursin RFS Level Per Nursing on Admit: 3=High ANNI AMOS MD Aug 29, 2019 11:37 am
[2019-08-29] MEDS ORDERED: lisINopril 10 MG (PRINIVIL) TABLET PO SCH (11:45)
[2019-08-29] MEDS ORDERED: LOSARTAN 25 MG (COZAAR) TAB PO ONE (12:30)
--- NOTE | 2019-08-29 13:52 | NUR ---
2nd attempt for nitrogen operator visit and pt is sleeping.
[2019-08-29] MEDS: LORazepam INJ 2 MG/ML (ATIVAN) VIAL IV PRN ×2 (16:35→23:43)
[2019-08-30] VITALS (8 sets, daily range): BP systolic 91–127; BP diastolic 34–100
[2019-08-30] MEDS: NS IV 1000 ML 1,000 ML IV SCH ×2 (06:53→12:50)
[2019-08-30] MEDS: GEMFIBROZIL 600 MG (LOPID) TAB PO SCH (07:01)
[2019-08-30] MEDS: NYSTATIN ORAL SUSP 5 ML UDC PO SCH ×2 (07:02→11:23)
[2019-08-30] MEDS: ONDANSETRON 4 MG/2 ML (SDV) Z0FRAN IVP PRN (07:03)
[2019-08-30] MEDS ORDERED: FUROSEMIDE 40 MG/4 ML INJ (LASIX) IVP ONE (07:30)
--- NOTE | 2019-08-30 08:16 | Diagnostic Imaging Report ---
HISTORY: Dyspnea, weakness, non-STEMI TECHNIQUE: Frontal view chest COMPARISON: 08/27/2019 FINDINGS: Lung volumes are mildly large. There is eventration of the right hemidiaphragm. No focal consolidation is seen. There is no pleural effusion or pneumothorax. The cardiac silhouette is normal in size. IMPRESSION: 1. No acute pulmonary abnormality is seen. Dictated by: Dictated on workstation # [id number]
[2019-08-30] MEDS: PANTOPRAZOLE 40 MG (PROTONIX) TAB PO SCH (08:19)
[2019-08-30 08:49] LABS: HEMOGLOBIN 11.2 G/DL (11.5-16.0); MEAN PLATELET VOLUME 9.7 FL (7.4-10.4); WHITE BLOOD COUNT 11.4 10^3/uL (4.3-11.0)
[2019-08-30 08:59] LABS: CHLORIDE 99 MMOL/L (98-107); POTASSIUM 3.9 MMOL/L (3.6-5.0); SODIUM 133 MMOL/L (135-145)
[2019-08-30] MEDS ORDERED: LOSARTAN 25 MG (COZAAR) TAB PO SCH (09:00)
[2019-08-30 09:01] LABS: CALCIUM 8.5 MG/DL (8.5-10.1); GLUCOSE 267 MG/DL (70-105)
[2019-08-30 09:02] LABS: CARBON DIOXIDE 23 MMOL/L (21-32)
[2019-08-30 09:05] LABS: CREATININE SERUM 0.89 MG/DL (0.60-1.30); GFR ESTIMATED > 60
[2019-08-30 09:06] LABS: BUN/CREATININE RATIO 11
[2019-08-30] MEDS: OMEGA 3 (FISH OIL) 1000 MG CAP PO SCH (09:35)
[2019-08-30] MEDS: CLOPIDOGREL 75 MG (PLAVIX) TABLET PO SCH (09:36)
[2019-08-30] MEDS: meTOprolol TARTRATE 50 MG (LOPRESSOR) TAB PO SCH (09:36)
[2019-08-30] MEDS: ASPIRIN E.C. 81 MG (ECOTRIN) TAB PO SCH (09:36)
[2019-08-30] MEDS: inSUlin ASPART (NovoLOG) 1 UNIT/0.01 ML (CHARGE PER UNIT) SC SCH ×2 (09:38→11:11)
[2019-08-30] MEDS: NITRO DRIP 25000 MCG/D5W 250 ML IV SCH (09:39)
[2019-08-30] MEDS: NITROPRUSSIDE INJECTION 50 MG in D5W IV SOLUTION (EXCEL) 250 ML IV SCH (09:39)
[2019-08-30] MEDS ORDERED: ATOR40TA PO (10:30)
[2019-08-30] MEDS ORDERED: GEMF600T8 PO (10:30)
[2019-08-30] MEDS ORDERED: METO50TA15 PO (10:30)
[2019-08-30] MEDS ORDERED: CLOP75TA28 PO (10:30)
[2019-08-30] MEDS ORDERED: LOSA25TA41 PO (10:30)
[2019-08-30] MEDS ORDERED: OMG1KC PO (10:30)
[2019-08-30] MEDS ORDERED: ASPI-983 PO (10:30)
--- NOTE | 2019-08-30 10:31 | Discharge Inst-Post CATH ---
Discharge Inst-CATH/EP Problems Reviewed?: Yes Post Cardiac Cath/EP D/C Inst Follow Up/Plan Appointment with Dr. Juarez's office in 2-4 weeks <b>CARDIAC CATH/EP PROCEDURE DISCHARGE INSTRUCTIONS</b> ACTIVITY * Go Home directly and rest. * Limit activity of the leg (or wrist if it was used) for 7 days including aerobics, swimming, jogging, bicycling, etc. * Restrict stair-climbing for 7 days if possible, if not, climb up with your non-cath leg, then bring together on the same step. * Avoid lifting, pushing, pulling or excessive movement of the affected extremity for 7 days. * Customary sexual activity may be resumed after 2 days-use caution not to use a position that strains or causes pain to the affected extremity. * No driving for 24 hours. * NO SMOKING. * Avoid straining for bowel movements for 7 days. * Gentle walking on level ground is allowed. * Returning to work will depend on the type of procedure and the results. Your doctor will discuss this with you. CALL YOUR DOCTOR FOR ANY OF THE FOLLOWING: *If bleeding from the puncture site occurs- Apply gentle pressure to site with clean cloth and call your doctor or EMS. * If a knot or lump forms under the skin, increases in size, or causes pain. * If bruising appears to be worsening or moving further down your leg instead of disappearing. * Temperature above 101 F. CARE OF YOUR GROIN INCISION; * Bruising or purple discoloration of the skin near the puncture site is common. * You may shower only, no bathtub bathing for 5 days. Be careful to avoid slipping as your leg may feel stiff. * If a closure device was used on your femoral artery, please see the attached guide regarding care of the device and your leg. * Leave dressing on FOR 24 hours. CARE OF YOUR WRIST INCISION; * Bruising or purple discoloration of the skin near the puncture site is common. * You may shower. * DO NOT submerge wrist. * Leave dressing on FOR 24 hours. ANNI JUAREZ MD Aug 30, 2019 10:31 am
--- NOTE | 2019-08-30 10:34 | Cardiology Progress Note ---
Subjective Date Seen by Provider: Aug 30, 2019 Time Seen by Provider: 10:32 Subjective/Events-last exam Patient is laying down in bed, feeling better. No chest pain, large bruise on the right groin. Review of Systems General: No Chills, No Night Sweats, No Fatigue, No Malaise, No Appetite, No Other HEENT: No Head Aches, No Visual Changes, No Eye Pain, No Ear Pain, No Dysphasia, No Sinus Congestion, No Post Nasal Drip, No Sore Throat, No Other Pulmonary: No Dyspnea, No Cough, No Pleuritic Chest Pain, No Other Cardiovascular: No: Chest Pain, Palpitations, Orthopnea, Paroxysmal Noc. Dyspnea, Edema, Lt Headedness, Other Focused Exam Lactate Level 08/27/19 15:00: Lactic Acid Level 1.77 Objective-Cardiology Exam Last Set of Vital Signs Vital Signs 08/28/19 08/30/19 08/30/19 18:00 08:00 09:35 Temp 36.8 Pulse 81 Resp 16 B/P (MAP) 103/55 (71) Pulse Ox 98 O2 Delivery Room Air O2 Flow Rate 3.00 Capillary Refill : Less Than 3 Seconds I&O Intake and Output 08/30/19 00:00 Intake Total 1820 ml Output Total 5200 ml Balance -3380 ml Intake Oral 1820 ml Output Urine Total 5200 ml # Bowel Movements 1 General: Alert, Oriented X3, Cooperative HEENT: Atraumatic, PERRLA Neck: Supple, No JVD, No Thyromegaly Lungs: Clear to Auscultation, Normal Air Movement Heart: Regular Rate, Normal S1, Normal S2, No Murmurs Abdomen: Normal Bowel Sounds, Soft, No Tenderness, No Hepatosplenomegaly, No Masses Extremities: No Clubbing, No Cyanosis, No Edema, Normal Pulses, No Tenderness/Swelling Skin: No Rashes, No Breakdown, No Significant Lesion Neuro: Normal Gait, Normal Speech, Strength at 5/5 X4 Ext, Normal Tone, Sensat ion Intact Psych/Mental Status: Mental Status NL, Mood NL Results Lab Laboratory Tests 08/30/19 08:41 A/P-Cardiology Admission Diagnosis Chest pain Shortness of breath Abdominal pain Hoarseness Assessment/Plan Unstable angina, Non-ST elevation myocardial infarction, coronary artery disease status post complex intervention to the right coronary artery as described below. Feeling better. EKG had T-wave inversion with slight elevation in leads 2, 3 and aVF. Asymptomatic at this time. Coronary artery disease status post cardiac catheterization showing subtotal occlusion in the midright coronary artery, complex intervention with 2 stents deployment in the right coronary artery using Mikala 3 x 23 and 3.5 x 12 expanded to 3.6 mm with excellent angiographic results. Patient had chest pain, had ST elevation in the inferior leads that appear to be settling down, still have some residual elevation. Had a heavy thrombus burden probably distal embolization. Continue on aspirin and Plavix, okay for discharge and follow-up as an outpatient Abdominal pain, mild epigastric tenderness and right upper quadrant tenderness. Consider ultrasound of the abdomen. Reporting improvement. Continue to monitor Shortness of breath, reporting improvement, chest x-ray is negative. Hoarseness, oral thrush, slightly better today. Managed by primary care physician History of tobaccoism until last year, reported stopped smoking last year. Encouraged to continue with smoking cessation. Hypertension, poor control, started on metoprolol, added lisinopril today, keep Cardizem on hold and I will consider adding that later Hyperlipidemia/hypertriglyceridemia. We'll initiate fenofibrate and evaluate tolerance and response Family history of atherosclerosis Obesity, BMI 39, discussed weight loss Clinical Quality Measures DVT/VTE Risk/Contraindication: Risk Factor Score Per Nursin RFS Level Per Nursing on Admit: 3=High ANNI AMOS MD Aug 30, 2019 10:34 am
[2019-08-30] MEDS ORDERED: NYST1000 PO (11:20)
== END 2019-08-30 13:55 | disposition home or self-care (01) | DRG 247 ==
LOC: ER 14:59 → CSD 16:36 → ER 17:07 → ICU 08-28 10:30 → OBSVTOIN 08-29 10:11
PROVIDERS: ADMIT Family Medicine; ATTEND Family Medicine
PROC: 027035Z Dilation of Coronary Artery, One Artery with Two Drug-eluting Intraluminal Devices, Percutaneous Approach (ICD-10-PCS; principal; 2019-08-28)
PROC: 4A023N7 Measurement of Cardiac Sampling and Pressure, Left Heart, Percutaneous Approach (ICD-10-PCS; 2019-08-28)
PROC: B2111ZZ Fluoroscopy of Multiple Coronary Arteries using Low Osmolar Contrast (ICD-10-PCS; 2019-08-28)
PROC: B2151ZZ Fluoroscopy of Left Heart using Low Osmolar Contrast (ICD-10-PCS; 2019-08-28)
DX: I21.4 Non-ST elevation (NSTEMI) myocardial infarction (principal); B37.0 Candidal stomatitis; I10 Essential (primary) hypertension; E66.01 Morbid (severe) obesity due to excess calories; G47.33 Obstructive sleep apnea (adult) (pediatric); E78.5 Hyperlipidemia, unspecified; E78.00 Pure hypercholesterolemia, unspecified; I25.110 Atherosclerotic heart disease of native coronary artery with unstable angina pectoris; R49.0 Dysphonia; Z68.39 Body mass index [BMI] 39.0-39.9, adult
CPT/HCPCS: 36415; 71045; 80048; 80053; 80061; 82962; 83036; 83605; 83615; 83690; 83735; 83874; 83880; 84145; 84484; 85025; 85027; 85379; 85610; 85652; 85730; 86141; 87040; 93005; 93041; 93306; 93458

== ENCOUNTER 2019-10-21 07:06 | Day surgery (SDC) | payer BC ==
[~2019-10-21] VITALS: Ht 170 cm; Wt 116.0 kg
[2019-10-21] VITALS (10 sets, daily range): BP systolic 96–141; BP diastolic 61–76
[~2019-10-21 07:06] MED LIST: ACET-789 PO; ALPR0.5T PO; ALPR0.5T7 PO; ASPI-983 PO; ATOR40TA PO; BIEST; BUDE10.2 IH; CARI350T27 PO; CELE-63 PO; CLOP75TA28 PO; DICL100G18 TP; DILT120T3 PO; ERGO50006 PO; FAMO20TA5 PO; GEMF600T8 PO; LOSA25TA41 PO; METO50TA15 PO; NYST1000 PO; OMEP20CA18 PO; OMG1KC PO; ONDA4TAB11 PO; PANT40TA3 PO; PRD10T PO; PROM25TA14 PO; RT-ALBUINH INH; TRAM50TA3 PO; ZOLP10TA PO
[2019-10-21] MEDS ORDERED: LIDOCAINE 1% INJ 20 ML 20 ML VIAL ONE (07:10)
[2019-10-21] MEDS ORDERED: HEParin (CATH LAB) 2,000 ML IV ONE (07:10)
[2019-10-21] MEDS ORDERED: NS IV 1000 ML 1,000 ML ONE (07:10)
--- OUTSIDE RECORDS SUMMARY | 2019-10-21 07:11 | XMS REPORT | Continuity of Care Document ---
Demographics Preferred Language Unknown Marital Status Unknown [employer] Affiliation Unknown Race Unknown Ethnic Group Unknown Author Organization Unknown Address Unknown Phone Unavailable Allergies Active Description Code Type Severity Reaction Onset Reported/Identified Relationship to Patient Clinical Status Yes ibuprofen [id number] Drug Allergy Unknown N/A 08/27/2019 Yes No Known Drug Allergies [id number] Drug Allergy Unknown N/A 08/27/2019 Medications There is no data. Problems Date Dx Coded Attending Type Code Diagnosis Diagnosed By 08/27/2019 JUAN PARKER MD, Ot B37. 0 CANDIDAL STOMATITIS 08/27/2019 JUAN PARKER MD, Ot E66. 01 MORBID (SEVERE) OBESITY DUE TO EXCESS CA 08/27/2019 JUAN PARKER MD Ot E78. 00 PURE HYPERCHOLESTEROLEMIA, UNSPECIFIED 08/27/2019 JUAN PARKER MD Ot E78. 5 HYPERLIPIDEMIA, UNSPECIFIED 08/27/2019 JUAN PARKER MD Ot G47. 33 OBSTRUCTIVE SLEEP APNEA (ADULT) (PEDIATR 08/27/2019 JUAN PARKER MD Ot I10 ESSENTIAL (PRIMARY) HYPERTENSION 08/27/2019 JUAN PARKER MD Ot I21. 4 NON-ST ELEVATION (NSTEMI) MYOCARDIAL INF 08/27/2019 JUAN PARKER MD Ot I25.110 ATHSCL HEART DISEASE OF [place] ART W 08/27/2019 JUAN PARKER MD Ot R49. 0 DYSPHONIA 08/27/2019 JUAN PARKER MD Ot Z68. 39 BODY MASS INDEX (BMI) 39.0-39.9, ADULT 08/30/2019 JUAN PARKER MD, Ot B37. 0 CANDIDAL STOMATITIS 08/30/2019 JUAN PARKER MD Ot E66. 01 MORBID (SEVERE) OBESITY DUE TO EXCESS CA 08/30/2019 JUAN PARKER MD Ot E78. 00 PURE HYPERCHOLESTEROLEMIA, UNSPECIFIED 08/30/2019 JUAN PARKRE MD Ot E78. 5 HYPERLIPIDEMIA, UNSPECIFIED 08/30/2019 JUAN PARKER MD Ot G47. 33 OBSTRUCTIVE SLEEP APNEA (ADULT) (PEDIATR 08/30/2019 JUAN PARKER MD Ot I10 ESSENTIAL (PRIMARY) HYPERTENSION 08/30/2019 JUAN PARKER MD Ot I21. 4 NON-ST ELEVATION (NSTEMI) MYOCARDIAL INF 08/30/2019 JUAN PARKER MD Ot I25.110 ATHSCL HEART DISEASE OF [place] [facility] ART W 08/30/2019 JUAN PARKER MD Ot R49. 0 DYSPHONIA 08/30/2019 JUAN PARKER MD Ot Z68. 39 BODY MASS INDEX (BMI) 39.0-39.9, ADULT 09/02/2019 JUAN PARKER MD Ot B37. 0 CANDIDAL STOMATITIS 09/02/2019 JUAN PARKER MD Ot E66. 01 MORBID (SEVERE) OBESITY DUE TO EXCESS CA 09/02/2019 JUAN PARKER MD Ot E78. 00 PURE HYPERCHOLESTEROLEMIA, UNSPECIFIED 09/02/2019 JUAN PARKER MD Ot E78. 5 HYPERLIPIDEMIA, UNSPECIFIED 09/02/2019 JUAN PARKER MD Ot G47. 33 OBSTRUCTIVE SLEEP APNEA (ADULT) (PEDIATR 09/02/2019 JUAN PARKER MD Ot I10 ESSENTIAL (PRIMARY) HYPERTENSION 09/02/2019 JUAN PARKER MD Ot I21. 4 NON-ST ELEVATION (NSTEMI) MYOCARDIAL INF 09/02/2019 JUAN PARKER MD, Ot I25.110 ATHSCL HEART DISEASE OF [place] [facility] ART W 09/02/2019 JUAN PARKER MD Ot R49. 0 DYSPHONIA 09/02/2019 JUAN PARKER MD Ot Z68. 39 BODY MASS INDEX (BMI) 39.0-39.9, ADULT 09/02/2019 JUAN PARKER MD Ot B37. 0 CANDIDAL STOMATITIS 09/02/2019 JUAN PARKER MD Ot E66. 01 MORBID (SEVERE) OBESITY DUE TO EXCESS CA 09/02/2019 JUAN PARKER MD Ot E78. 00 PURE HYPERCHOLESTEROLEMIA, UNSPECIFIED 09/02/2019 JUAN PARKER MD Ot E78. 5 HYPERLIPIDEMIA, UNSPECIFIED 09/02/2019 JUAN PARKER MD Ot G47. 33 OBSTRUCTIVE SLEEP APNEA (ADULT) (PEDIATR 09/02/2019 JUAN PARKER MD Ot I10 ESSENTIAL (PRIMARY) HYPERTENSION 09/02/2019 JUAN PARKER MD Ot I21. 4 NON-ST ELEVATION (NSTEMI) MYOCARDIAL INF 09/02/2019 JUAN PARKER MD Ot I25.110 ATHSCL HEART DISEASE OF [place] [facility] ART W 09/02/2019 JUAN PARKER MD Ot R49. 0 DYSPHONIA 09/02/2019 JUAN PARKER MD Ot Z68. 39 BODY MASS INDEX (BMI) 39.0-39.9, ADULT 09/02/2019 JUAN PARKER MD Ot B37. 0 CANDIDAL STOMATITIS 09/02/2019 JUAN PARKER MD Ot E66. 01 MORBID (SEVERE) OBESITY DUE TO EXCESS CA 09/02/2019 JUAN PARKER MD Ot E78. 00 PURE HYPERCHOLESTEROLEMIA, UNSPECIFIED 09/02/2019 JUAN PARKER MD Ot E78. 5 HYPERLIPIDEMIA, UNSPECIFIED 09/02/2019 JUAN PARKER MD Ot G47. 33 OBSTRUCTIVE SLEEP APNEA (ADULT) (PEDIATR 09/02/2019 JUAN PARKER MD Ot I10 ESSENTIAL (PRIMARY) HYPERTENSION 09/02/2019 JUAN PARKER MD Ot I21. 4 NON-ST ELEVATION (NSTEMI) MYOCARDIAL INF 09/02/2019 JUAN PARKER MD, Ot I25.110 ATHSCL HEART DISEASE OF [place] [facility] ART W 09/02/2019 JUAN PARKER MD Ot R49. 0 DYSPHONIA 09/02/2019 JUAN PARKER MD Ot Z68. 39 BODY MASS INDEX (BMI) 39.0-39.9, ADULT 09/02/2019 JUAN PARKER MD Ot B37. 0 CANDIDAL STOMATITIS 09/02/2019 JUAN PARKER MD Ot E66. 01 MORBID (SEVERE) OBESITY DUE TO EXCESS CA 09/02/2019 JUAN PARKER MD Ot E78. 00 PURE HYPERCHOLESTEROLEMIA, UNSPECIFIED 09/02/2019 JUAN PARKER MD Ot E78. 5 HYPERLIPIDEMIA, UNSPECIFIED 09/02/2019 JUAN PARKER MD Ot G47. 33 OBSTRUCTIVE SLEEP APNEA (ADULT) (PEDIATR 09/02/2019 JUAN PARKER MD Ot I10 ESSENTIAL (PRIMARY) HYPERTENSION 09/02/2019 JUAN PARKER MD Ot I21. 4 NON-ST ELEVATION (NSTEMI) MYOCARDIAL INF 09/02/2019 JUAN PARKER MD Ot I25.110 ATHSCL HEART DISEASE OF [place] [facility] ART W 09/02/2019 JUAN PARKER MD Ot R49. 0 DYSPHONIA 09/02/2019 JUAN PARKER MD Ot Z68. 39 BODY MASS INDEX (BMI) 39.0-39.9, ADULT 10/13/2019 JUAN PARKER MD Ot B37. 0 CANDIDAL STOMATITIS 10/13/2019 JUAN PARKER MD Ot E66. 01 MORBID (SEVERE) OBESITY DUE TO EXCESS CA 10/13/2019 JUAN PARKER MD Ot E78. 00 PURE HYPERCHOLESTEROLEMIA, UNSPECIFIED 10/13/2019 JUAN PARKER MD Ot E78. 5 HYPERLIPIDEMIA, UNSPECIFIED 10/13/2019 JUAN PARKER MD Ot G47. 33 OBSTRUCTIVE SLEEP APNEA (ADULT) (PEDIATR 10/13/2019 JUAN PARKER MD Ot I10 ESSENTIAL (PRIMARY) HYPERTENSION 10/13/2019 JUAN PARKER MD Ot I21. 4 NON-ST ELEVATION (NSTEMI) MYOCARDIAL INF 10/13/2019 JUAN PARKER MD Ot I25.110 ATHSCL HEART DISEASE OF [place] [facility] ART W 10/13/2019 JUAN PARKER MD Ot R49. 0 DYSPHONIA 10/13/2019 JUAN PARKER MD Ot Z68. 39 BODY MASS INDEX (BMI) 39.0-39.9, ADULT 10/13/2019 JUAN PARKER MD Ot B37. 0 CANDIDAL STOMATITIS 10/13/2019 JUAN PARKER MD Ot E66. 01 MORBID (SEVERE) OBESITY DUE TO EXCESS CA 10/13/2019 JUAN PARKER MD Ot E78. 00 PURE HYPERCHOLESTEROLEMIA, UNSPECIFIED 10/13/2019 JUAN PARKER MD Ot E78. 5 HYPERLIPIDEMIA, UNSPECIFIED 10/13/2019 JUAN PARKER MD Ot G47. 33 OBSTRUCTIVE SLEEP APNEA (ADULT) (PEDIATR 10/13/2019 JUAN PARKER MD, Ot I10 ESSENTIAL (PRIMARY) HYPERTENSION 10/13/2019 JUAN PARKER MD, Ot I21. 4 NON-ST ELEVATION (NSTEMI) MYOCARDIAL INF 10/13/2019 JUAN PARKER MD, Ot I25.110 ATHSCL HEART DISEASE OF [place] [facility] ART W 10/13/2019 JUAN PARKER MD, Ot R49. 0 DYSPHONIA 10/13/2019 JUAN PARKER MD, Ot Z68. 39 BODY MASS INDEX (BMI) 39.0-39.9, ADULT Procedures Code Description Performed By Per formed On [id number] DI LATION OF 1 COR ART WITH 2 DRUG-ELUT, 08/28/2019 [id number] ME ASURE OF CARDIAC SAMPL PRESSURE, L H 08/28/2019 [id number] FL UOROSCOPY OF MULT COR ART USING L OSM 08/28/2019 [id number] FL UOROSCOPY OF LEFT HEART USING LOW OSMO 08/28/2019 Results Test Result Range Triiodothyronine,Free,Serum - 03/27/19 1 7:25 Triiodothyronine,Free,Serum 4.3 pg/mL 2. 0-4.4 CYTOCHECK COVID-19 - 08/21/19 19:18 [id number] NOT DETECTED Not Detecte d Complete blood count (CBC) with automate d [...] protein measurement (mass/v olume) 0.75 mg/dL 0.00-0.50 Bacterial blood culture - 08/27/19 15:00 Bacterial blood culture NG NRG Bacterial blood culture - 08/27/19 15:55 Bacterial blood culture NG NRG Serum or plasma troponin i.cardiac measu rement (mass/volume) - 08/27/19 21:05 Serum or plasma troponin i.cardiac measurement (mass/v olume) 0.323 ng/mL <0.028 Serum or plasma lithium measurement (mol es/volume) - 08/27/19 21:09 BNP PT 69.8 pg/mL <100.0 Comprehensive metabolic panel - 08/28/19 03:26 Serum or plasma sodium measurement (moles/volume) 135 mmol/L 135-145 Serum or plasma potassium measurement (moles/volume) 4.7 mmol/L 3.6-5.0 Serum or plasma chloride measurement (moles/volume) 104 mmol/L 98-107 Carbon dioxide 21 mmol/L 21-32 Serum or plasma anion gap determination (moles/volume) 10 mmol/L 5-14 Serum or plasma urea nitrogen measurement (mass/volume ) 15 mg/dL 7-18 Serum or plasma creatinine measurement (mass/volume) 0.82 mg/dL 0.60-1.30 Serum or plasma urea nitrogen/creatinine mass ratio 18 NRG Serum or plasma creatinine measurement w ith calculation of estimated glomerular filtration rate > NRG Serum or plasma glucose measurement (mass/volume) 122 mg/dL 70-105 Serum or plasma calcium measurement (mass/volume) 8.5 mg/dL 8.5-10.1 Serum or plasma total bilirubin measurement (mass/volu me) 0.2 mg/dL 0.1-1.0 Serum or plasma alkaline phosphatase mt surement (enzymatic activity/volume) 76 U/L 40-136 Serum or plasma aspartate aminotransfera se measurement (enzymatic activity/volume) 44 U/L 5-34 Serum or plasma alanine aminotransferase measurement (enzymatic activity/volume) 67 U/L 0-55 Serum or plasma protein measurement (mass/volume) 8.4 g/dL 6.4-8.2 Serum or plasma albumin measurement (mass/volume) 3.4 g/dL 3.2-4.5 CALCIUM CORRECTED 9.0 mg/dL 8.5-10.1 Serum or plasma troponin i.cardiac measu rement (mass/volume) - 08/28/19 03:26 Serum or plasma troponin i.cardiac measurement (mass/v olume) 0.289 ng/mL <0.028 Complete blood count (CBC) with automate d white blood cell (WBC) differential - 08/28/19 03:26 Blood leukocytes automated count (number/volume) 8.3 10*3/uL 4.3-11.0 Blood erythrocytes automated count (number/volume) 4.11 10*6/uL 4.35-5.85 Venous blood hemoglobin measurement (mass/volume) 12.8 g/dL 11.5-16.0 Blood hematocrit (volume fraction) 35 % 35-52 Automated erythrocyte mean corpuscular volume 86 [ foz_us] 80-99 Automated erythrocyte mean corpuscular h emoglobin (mass per erythrocyte) 31 pg 25-34 Automated erythrocyte mean corpuscular h emoglobin concentration measurement (mass/volume) 36 g/dL 32-36 Automated erythrocyte distribution width ratio 14. 6 % 10.0- 14.5 Automated blood platelet count (count/volume) 249 10*3/uL 130-400 Automated blood platelet mean volume measurement 9.7 [foz_us] 7.4-10.4 Automated blood neutrophils/100 leukocytes 51 % 42-75 Automated blood lymphocytes/100 leukocytes 42 % 12-44 Blood monocytes/100 leukocytes 5 % 0-12 Automated blood eosinophils/100 leukocytes 2 % 0-10 Automated blood basophils/100 leukocytes 0 % 0-10 Blood neutrophils automated count (number/volume) 4.2 10*3 1.8-7.8 Blood lymphocytes automated count (number/volume) 3.5 10*3 1.0-4.0 Blood monocytes automated count (number/volume) 0. 5 10*3 0.0-1.0 Automated eosinophil count 0.2 10*3/uL 0 .0-0.3 Automated blood basophil count (count/volume) 0.0 10*3/uL 0.0-0.1 Lipid 1996 panel - 08/28/19 03:26 Serum or plasma triglyceride measurement (mass/volume) 1619 mg/dL <150 Serum or plasma cholesterol measurement (mass/volume) 294 mg/dL < 200 Serum or plasma cholesterol in HDL measurement (mass/v olume) 29 mg/dL 40-60 Cholesterol in LDL [mass/volume] in serum or plasma by direct assay 109 mg/dL 1-129 Serum or plasma cholesterol in VLDL measurement (mass/ volume) 324 mg/dL 5-40 Complete blood count (CBC) with automate d white blood cell (WBC) differential - 08/29/19 03:00 Blood leukocytes automated count (number/volume) 12.4 10*3/uL 4.3-11.0 Blood erythrocytes automated count (number/volume) 3.90 10*6/uL 4.35-5.85 Venous blood hemoglobin measurement (mass/volume) 11.4 g/dL 11.5-16.0 Blood hematocrit (volume fraction) 33 % 35-52 Automated erythrocyte mean corpuscular volume 85 [ foz_us] 80-99 Automated erythrocyte mean corpuscular h emoglobin (mass per erythrocyte) 29 pg 25-34 Automated erythrocyte mean corpuscular h emoglobin concentration measurement (mass/volume) 35 g/dL 32-36 Automated erythrocyte distribution width ratio 13. 9 % 10.0- 14.5 Automated blood platelet count (count/volume) 261 10*3/uL 130-400 Automated blood platelet mean volume measurement 9.6 [foz_us] 7.4-10.4 Automated blood neutrophils/100 leukocytes 73 % 42-75 Automated blood lymphocytes/100 leukocytes 17 % 12-44 Blood monocytes/100 leukocytes 6 % 0-12 Automated blood eosinophils/100 leukocytes 4 % 0-10 Automated blood basophils/100 leukocytes 0 % 0-10 Blood neutrophils automated count (number/volume) 9.0 10*3 1.8-7.8 Blood lymphocytes automated count (number/volume) 2.0 10*3 1.0-4.0 Blood monocytes automated count (number/volume) 0. 8 10*3 0.0-1.0 Automated eosinophil count 0.5 10*3/uL 0 .0-0.3 Automated blood basophil count (count/volume) 0.0 10*3/uL 0.0-0.1 Comprehensive metabolic panel - 08/29/19 03:00 Serum or plasma sodium measurement (moles/volume) 134 mmol/L 135-145 Serum or plasma potassium measurement (moles/volume) 4.3 mmol/L 3.6-5.0 Serum or plasma chloride measurement (moles/volume) 99 mmol/L 98-107 Carbon dioxide 22 mmol/L 21-32 Serum or plasma anion gap determination (moles/volume) 13 mmol/L 5-14 Serum or plasma urea nitrogen measurement (mass/volume ) 11 mg/dL 7-18 Serum or plasma creatinine measurement (mass/volume) 0.72 mg/dL 0.60-1.30 Serum or plasma urea nitrogen/creatinine mass ratio 15 NRG Serum or plasma creatinine measurement w ith calculation of estimated glomerular filtration rate > NRG Serum or plasma glucose measurement (mass/volume) 132 mg/dL 70-105 Serum or plasma calcium measurement (mass/volume) 8.3 mg/dL 8.5-10.1 Serum or plasma total bilirubin measurement (mass/volu me) 0.5 mg/dL 0.1-1.0 Serum or plasma alkaline phosphatase mt surement (enzymatic activity/volume) 71 U/L 40-136 Serum or plasma aspartate aminotransfera se measurement (enzymatic activity/volume) 72 U/L 5-34 Serum or plasma alanine aminotransferase measurement (enzymatic activity/volume) 59 U/L 0-55 Serum or plasma protein measurement (mass/volume) 6.4 g/dL 6.4-8.2 Serum or plasma albumin measurement (mass/volume) 3.6 g/dL 3.2-4.5 CALCIUM CORRECTED 8.6 mg/dL 8.5-10.1 Serum or plasma lithium measurement (mol es/volume) - 08/29/19 03:00 BNP PT 56.9 pg/mL <100.0 Serum or plasma troponin i.cardiac measu rement (mass/volume) - 08/29/19 03:00 Serum or plasma troponin i.cardiac measurement (mass/v olume) 7.251 ng/mL <0.028 Hemoglobin A1c measurement - 08/29/19 03 :00 Blood hemoglobin A1C measurement (mass/volume) 6.7 % 4.0-5.6 MEAN BLOOD GLUCOSE 146 % <=126 Automated blood complete blood count (he mogram) panel - 08/30/19 08:41 Blood leukocytes automated count (number/volume) 11.4 10*3/uL 4.3-11.0 Blood erythrocytes automated count (number/volume) 3.94 10*6/uL 4.35-5.85 Venous blood hemoglobin measurement (mass/volume) 11.2 g/dL 11.5-16.0 Blood hematocrit (volume fraction) 34 % 35-52 Automated erythrocyte mean corpuscular volume 86 [ foz_us] 80-99 Automated erythrocyte mean corpuscular h emoglobin (mass per erythrocyte) 28 pg 25-34 Automated erythrocyte mean corpuscular h emoglobin concentration measurement (mass/volume) 33 g/dL 32-36 Automated erythrocyte distribution width ratio 14. 0 % 10.0- 14.5 Automated blood platelet count (count/volume) 237 10*3/uL 130-400 Automated blood platelet mean volume measurement 9.7 [foz_us] 7.4-10.4 Whole blood basic metabolic panel - 08/10 03/30 08:41 Serum or plasma sodium measurement (moles/volume) 133 mmol/L 135-145 Serum or plasma potassium measurement (moles/volume) 3.9 mmol/L 3.6-5.0 Serum or plasma chloride measurement (moles/volume) 99 mmol/L 98-107 Carbon dioxide 23 mmol/L 21-32 Serum or plasma anion gap determination (moles/volume) 11 mmol/L 5-14 Serum or plasma urea nitrogen measurement (mass/volume ) 10 mg/dL 7-18 Serum or plasma creatinine measurement (mass/volume) 0.89 mg/dL 0.60-1.30 Serum or plasma urea nitrogen/creatinine mass ratio 11 NRG Serum or plasma creatinine measurement w ith calculation of estimated glomerular filtration rate > NRG Serum or plasma glucose measurement (mass/volume) 267 mg/dL 70-105 Serum or plasma calcium measurement (mass/volume) 8.5 mg/dL 8.5-10.1 Capillary blood glucose measurement by g lucometer (mass/volume) - 08/30/19 11:02 Capillary blood glucose measurement by glucometer (mas s/volume) 140 mg/dL 70-110 Encounters ACCT No. Visit Date/Time Discharge Status Pt. Type Provider Facility Loc./Unit Complaint [id number] 03/29/2019 06:36:00 Document Registration [id number] 08/29/2019 10:11:00 020 13:55:00 DIS Outpatient KEITH BRADEN, JUAN Hayden [facility] ICU NSTEMI [id number] 09/07/2019 16:22:47 09/07/2019 23:59: 59 CLS Outpatient Tin, Isidoro V [id number] 09/07/2019 15:25:03 09/07/2019 23:59: 59 CLS Outpatient Yovany Holman-Michael [id number] 08/24/2019 17:08:15 08/24/2019 23:59: 59 CLS Outpatient Tin, Isidoro V [id number] 08/21/2019 19:10:32 08/21/2019 23:59: 59 CLS Outpatient Isis Gomez [id number] 08/19/2019 12:19:29 08/19/2019 23:59: 59 CLS Outpatient JoseFifi [id number] 08/11/2019 12:23:20 08/11/2019 23:59: 59 CLS Outpatient Tin, Isidoro V [id number] 07/06/2019 16:16:26 07/06/2019 23:59: 59 CLS Outpatient Tin, Isidoro V [id number] 06/08/2019 16:52:35 06/08/2019 23:59: 59 CLS Outpatient Iris Mason [id number] 02/27/2019 11:55:00 02/27/2019 23:59: 59 CLS Outpatient Tin, Isidoro V [id number] 11/27/2018 18:13:49 11/27/2018 23:59: 59 CLS Outpatient Elo Maurer [id number] 10/06/2018 16:00:19 10/06/2018 23:59: 59 CLS Outpatient Tin, Isidoro V [id number] 05/26/2018 16:32:47 05/26/2018 23:59: 59 CLS Outpatient Tin, Isidoro V [id number] 05/20/2018 19:25:13 05/20/2018 23:59: 59 CLS Outpatient Abdelrahman Murray [id number] 01/15/2018 16:30:48 01/15/2018 23:59: 59 CLS Outpatient Tin, Isidoro V [id number] 08/13/2017 16:50:57 08/13/2017 23:59: 59 CLS Outpatient Tin, Isidoro V [id number] 10/27/2015 14:27:31 10/27/2015 23:59: 59 CLS Outpatient Iris Mason [id number] 10/05/2015 11:50:23 10/05/2015 23:59: 59 CLS Outpatient Neville Wallace [id number] 10/05/2015 11:36:58 10/05/2015 23:59: 59 CLS Outpatient Iris Mason [id number] 10/05/2015 10:57:20 10/05/2015 23:59: 59 CLS Outpatient Samia Lawrence [id number] 10/03/2015 19:15:31 10/03/2015 23:59: 59 CLS Outpatient Sandra Masonanne [id number] 09/20/2015 14:40:02 09/20/2015 23:59: 59 CLS Outpatient Iris Mason [id number] 09/02/2015 12:34:59 09/02/2015 23:59: 59 CLS Outpatient Sandra Masonanne [id number] 08/22/2019 16:16:59 Document Registration
[2019-10-21] MEDS ORDERED: NS IV 1000 ML 1,000 ML IV SCH ×2 (07:15→08:37)
[2019-10-21 07:32] LABS: HEMOGLOBIN 13.2 G/DL (11.5-16.0); MEAN PLATELET VOLUME 9.7 FL (7.4-10.4); RED CELL DISTRIBUTION WIDTH 13.6 % (10.0-14.5); WHITE BLOOD COUNT 7.4 10^3/uL (4.3-11.0)
[2019-10-21] MEDS ORDERED: fentaNYL INJECTION 100 MCG/2 ML AMP ONE (07:33)
[2019-10-21] MEDS ORDERED: MIDAZOLAM 5 MG/5 ML (VERSED) VIAL ONE (07:33)
[2019-10-21 07:46] LABS: PROTHROMBIN TIME PATIENT 13.2 SEC (12.2-14.7)
[2019-10-21 07:52] LABS: ALANINE AMINOTRANSFERASE 25 U/L (0-55); ALKALINE PHOSPHATASE 74 U/L (40-136); BILIRUBIN,TOTAL 0.2 MG/DL (0.1-1.0); BUN/CREATININE RATIO 23; CALCIUM 8.4 MG/DL (8.5-10.1); CARBON DIOXIDE 22 MMOL/L (21-32); CHLORIDE 106 MMOL/L (98-107); CHOLESTEROL 174 MG/DL (< 200); CREATININE SERUM 0.98 MG/DL (0.60-1.30); GFR ESTIMATED 58; GLUCOSE 148 MG/DL (70-105); HDL CHOLESTEROL 27 MG/DL (40-60); POTASSIUM 4.3 MMOL/L (3.6-5.0); SODIUM 138 MMOL/L (135-145); TOTAL PROTEIN 7.6 GM/DL (6.4-8.2); TRIGLYCERIDES 845 MG/DL (<150)
--- NOTE | 2019-10-21 08:03 | Cardiac Procedure Note-CS/ASA ---
Pre-Procedure Note Pre-Op Procedure Note H&P Reviewed The H&P was reviewed, patient examined and no changes noted. Date H&P Reviewed: Oct 21, 2019 Time H&P Reviewed: 08:03 Conscious Sedation Pre-Proced Time 08:03 ASA Score 3 For ASA 3 and 4: Consider anesthesia and medical clearance. Also, for patients with a history of failed moderate sedation consider anesthesia. Airway Lungs Heart ASA score ASA 1: a normal healthy patient ASA 2: a patient with a mild systemic disease (mid diabetes, controlled hypertension, obesity x ASA 3: a patient with a severe systemic disease that limits activity (angina, COPD, prior Myocardial infarction) ASA 4: a patient with an incapacitating disease that is a constant threat to life (CHF, renal failure) ASA 5: a moribund patient not expected to survive 24 hrs. (ruptured aneurysm) ASA 6: a declared brain- patient whose organs are being harvested. For emergent operations, add the letter E after the classification Mallampati Classification Grade 3 Sedation Plan Analgesia, Amnesia, Plan communicated to team members, Discussed options with patient/fam, Discussed risks with patient/fam The patient is an appropriate candidate to undergo the planned procedure, sedation, and anesthesia. The patient immediately re-assessed prior to indication. ANNI AMOS MD Oct 21, 2019 08:03
[2019-10-21] MEDS ORDERED: GEMF600T8 PO (08:09)
[2019-10-21] MEDS ORDERED: METO50TA15 PO (08:09)
[2019-10-21] MEDS ORDERED: TRAM50TA3 PO (08:09)
[2019-10-21] MEDS ORDERED: CLOP75TA69 PO (08:09)
[2019-10-21] MEDS ORDERED: OMG1KC PO (08:09)
[2019-10-21] MEDS ORDERED: IRON15TA3 PO (08:09)
[2019-10-21] MEDS ORDERED: ASPI-983 PO (08:09)
[2019-10-21] MEDS ORDERED: LOSA50TA63 PO (08:09)
[2019-10-21] MEDS ORDERED: CYAN250014 PO (08:09)
[2019-10-21] MEDS ORDERED: ATOR40TA70 PO (08:09)
[2019-10-21] MEDS ORDERED: CHOL500050 PO (08:09)
[2019-10-21] MEDS ORDERED: ISOS30TA3 PO (08:41)
[2019-10-21] MEDS ORDERED: LOSA25TA41 PO (08:41)
[2019-10-21] MEDS ORDERED: ICOS1CAP PO (08:43)
--- NOTE | 2019-10-21 08:43 | Diagnostic Imaging Report ---
EXAMINATION: Chest radiograph, portable AP view. DATE: 10/21/2019 7:39 AM hours. INDICATION: 58-year-old female, chest pain. COMPARISON: August 30, 2019. FINDINGS: Stable overall appearance of the cardiomediastinal silhouette. There is no identified pneumothorax. There is no large pleural effusion. There is no identified focal airspace consolidation. IMPRESSION: No identified acute cardiopulmonary abnormality. Dictated by: Dictated on workstation # [id number]
--- NOTE | 2019-10-21 08:44 | Discharge Inst-Post CATH ---
Discharge Inst-CATH/EP Problems Reviewed?: Yes Post Cardiac Cath/EP D/C Inst Follow Up/Plan Appointment with Dr [facility] in 4 weeks <b>CARDIAC CATH/EP PROCEDURE DISCHARGE INSTRUCTIONS</b> ACTIVITY * Go Home directly and rest. * Limit activity of the leg (or wrist if it was used) for 7 days including aerobics, swimming, jogging, bicycling, etc. * Restrict stair-climbing for 7 days if possible, if not, climb up with your non -cath leg, then bring together on the same step. * Avoid lifting, pushing, pulling or excessive movement of the affected extr emity for 7 days. * Customary sexual activity may be resumed after 2 days-use caution not to use a position that strains or causes pain to the affected extremity. * No driving for 24 hours. * NO SMOKING. * Avoid straining for bowel movements for 7 days. * Gentle walking on level ground is allowed. * Returning to work will depend on the type of procedure and the results. Your doctor will discuss this with you. CALL YOUR DOCTOR FOR ANY OF THE FOLLOWING: *If bleeding from the puncture site occurs- Apply gentle pressure to site with clean cloth and call your doctor or EMS. * If a knot or lump forms under the skin, increases in size, or causes pain. * If bruising appears to be worsening or moving further down your leg instead of disappearing. * Temperature above 101 F. CARE OF YOUR GROIN INCISION; * Bruising or purple discoloration of the skin near the puncture site is common. * You may shower only, no bathtub bathing for 5 days. Be careful to avoid slipping as your leg may feel stiff. * If a closure device was used on your femoral artery, please see the attached guide regarding care of the device and your leg. * Leave dressing on FOR 24 hours. CARE OF YOUR WRIST INCISION; * Bruising or purple discoloration of the skin near the puncture site is common. * You may shower. * DO NOT submerge wrist. * Leave dressing on FOR 24 hours. ANNI JUAREZ MD Oct 21, 2019 08:44
[2019-10-21] MEDS ORDERED: PATIENT MAY USE OWN MEDS, ALL PO SCH (08:45)
--- NOTE | 2019-10-21 08:51 | Cardiac Cath Report ---
Cardiac Cath Report Physician (s)/Home Therapy Clinician (s) Physician ANNI AMOS MD Pre-Procedure Diagnosis Pre-Procedure Diagnosis: unstable angina Post-Procedure Note Procedure Start Date: Oct 21, 2019 Name of Procedure: Left heart catheterization Left ventriculogram Aortic arch angiogram Findings/Procedure Note PROCEDURE NOTE: 58-year-old lady with coronary artery disease had myocardial infarction in September 2019, underwent complex intervention to the right coronary artery, continue to have recurrent chest pain, seen in my office and reported worsening chest pain with exertion, unstable angina which is accelerating. I decided to proceed with cardiac catheterization reevaluate her coronary anatomy due to the fact that she had EKG changes after the intervention and continued to have recurrent chest pain that has been worsening. After explaining the procedure to the patient, all pros and cons were explained, all questions were answered. The patient signed the consent and then she was placed on the cardiac catheterization laboratory. Groin was prepped SL fashion local anesthesia was used. Sheath placed in the right femoral artery. Taylor right and left catheter were used to access the coronary system. Pigtail was used to access the left ventricular cavity. Left ventriculogram was done Aortic arch angiogram was done to evaluate for any reason for her persistent recurrent chest pain At the end of the procedure the sheath was removed. Closure device was used FINDINGS: Hemodynamics LV 132/8, end-diastolic pressure of 8 Aorta 129/67 mean of 93 ANATOMY: Left Main has proximal disease with spasm induced by catheter, nonobstructive di sease Left Anterior Descending is tortuous artery with [id number] disease in the midportion nonobstructive disease Left Circumflex is slightly tortuous with moderate disease at the midportion with some tortuosity nonobstructive disease Right Coronory Artery is large dominant artery, severe spasm at the ostium induced by the catheter, the stent is patent in the midright coronary artery with excellent flow distally, severe ostial right ventricular branch stenosis that was present on the previous cardiac catheterization that have not changed LV Gram was done showing normal left ventricular size and contractility estimated ejection fraction 60 percent Aorta evaluation done with aortic arch angiogram showing normal aortic arch, no dissection or aneurysm, normal origin of the brachiocephalic artery, the left carotid artery is coming off the right brachiocephalic, no obstructive disease. Left subclavian artery is normal CONCLUSION: 1. Patent stent in the midright coronary artery with severe spasm at the ostium of the right coronary artery with moderate stenosis, severe ostial stenosis at the right ventricular branch that has not changed compared to the previous study 2. Moderate stenosis in the mid circumflex artery with some tortuosity nonobstructive disease 3. Mild disease in the LAD 4. Mild disease in the left main with spasm induced by catheter 5. Normal left ventricular size and systolic function estimated ejection fraction 60 percent 6. Normal aortic arch and great vessels of the neck DISCUSSION AND RECOMMENDATION: Maximizing medical therapy is recommended I will add isosorbide to her current medication, she was noted to have triglyceride of 845 while on Lipitor 40 mg daily and fenofibrate. I will add Vascepa, monitor closely and evaluate hemoglobin A1c Anesthesia Type: Conscious Sedation Estimated blood loss (mL): 25 ml Contrast Amount: 75 ml Total Radiation Dose: 769 mGy Post-Procedure Diagnosis Post-operative diagnosis: Unstable angina Coronary artery disease Hypertension Hyperlipidemia Hypertriglyceridemia ANNI AMOS MD Oct 21, 2019 08:51
--- NOTE | 2019-10-21 10:04 | NUR ---
SPOKE WITH THE PT (SHE HAD HER MED BOTTLES) AND WENT THRU THE EXT MED HISTORY TO COMPLETE THE MED REC ALL MEDICATIONS ARE LISTED ON THE EXT MED HISTORY AND PT (AND HER DAUGHTER PILLO) WERE ABLE TO TELL ME HOW/WHEN PT TAKES EACH MED PT IS NO LONGER TAKING FAMOTIDINE, OMEPRAZOLE AND CARISOPRODOL WITH THE PATIENTS HOME MEDS SHE HAD A BOTTLE OF TRAMADOL 50MG DATED 10-12-2019 #180 BUT THE BOTTLE WAS EMPTY OTC MEDS: VIT B12 GUMMY IRON GUMMY FISH OIL ASPIRIN 81MG
--- NOTE | 2019-10-21 13:22 | NUR ---
WALESKA SINGH demonstrates understanding of discharge instructions and accurately returns instructions upon questioning. Copy of Post-Discharge Instructions and Medication Discharge Instructions given to PATIENT. WALESKA SINGH is able to manage continuing needs after discharge. Patients belongings returned to PATIENT. Skin dry and intact; R GROIN CARDIAC CATH SITE ASSESSED, WNL. Patient discharged from [facility]- on 10/21/19 at 1322 . WALESKA SINGH left floor via , accompanied by DAUGHTER ET SANGEETA.
== END 2019-10-21 13:22 | disposition home or self-care (01) ==
LOC: CATH 07:06 → CSD 09:00 → CATH 13:22
PROVIDERS: ATTEND Internal Medicine Cardiovascular Disease
DX: I25.110 Atherosclerotic heart disease of native coronary artery with unstable angina pectoris (principal); I21.4 Non-ST elevation (NSTEMI) myocardial infarction; I10 Essential (primary) hypertension; E78.5 Hyperlipidemia, unspecified; E78.1 Pure hyperglyceridemia; E66.9 Obesity, unspecified; Z68.41 Body mass index [BMI] 40.0-44.9, adult; Z79.82 Long term (current) use of aspirin; Z79.899 Other long term (current) drug therapy; Z88.5 Allergy status to narcotic agent; Z87.891 Personal history of nicotine dependence; Z80.9 Family history of malignant neoplasm, unspecified
CPT/HCPCS: 36221; 71045; 80053; 80061; 83036; 85027; 85610; 85730; 87081; 93458; C1760; C1894; 36415

== ENCOUNTER 2021-04-01 00:54 | Emergency (ER) | payer BC ==
[~2021-04-01] VITALS: Ht 172 cm; Wt 117.0 kg
[~2021-04-01 00:54] MED LIST changes: +ASPI-1238 PO; -ASPI-983 PO; +ATOR40TA70 PO; +CHOL500050 PO; +CLOP75TA69 PO; +CYAN250014 PO; +ERGO1250 PO; -ERGO50006 PO; -GEMF600T8 PO; +GEMF600T88 PO; +ICOS1CAP PO; +IRON15TA3 PO; +ISOS30TA82 PO; +LOSA50TA63 PO; -PANT40TA3 PO; +PANT40TA52 PO
[2021-04-01 01:13] LABS: BASOPHILS % (AUTO) 0 % (0-10); EOSINOPHILS # (AUTO) 0.2 10^3/uL (0.0-0.3); EOSINOPHILS % (AUTO) 2 % (0-10); HEMATOCRIT 40 % (35-52); HEMOGLOBIN 13.3 g/dL (11.5-16.0); LYMPHOCYTES # (AUTO) 0.7 10^3/uL (1.0-4.0); LYMPHOCYTES % (AUTO) 7 % (12-44); MEAN CORPUSCULAR HEMOGLOBIN 29 pg (25-34); MEAN CORPUSCULAR HGB CONC 33 g/dL (32-36); MEAN CORPUSCULAR VOLUME 87 fL (80-99); MEAN PLATELET VOLUME 9.8 fL (9.0-12.2); MONOCYTES # (AUTO) 0.5 10^3/uL (0.0-1.0); MONOCYTES % (AUTO) 5 % (0-12); NEUTROPHILS % (AUTO) 86 % (42-75); PLATELET COUNT 198 10^3/uL (130-400); WHITE BLOOD COUNT 9.3 10^3/uL (4.3-11.0)
[2021-04-01] MEDS ORDERED: ASPIRIN 81 MG CHEW (CHILDREN'S ASA) PO ONE (01:15)
[2021-04-01 01:24] LABS: PROTHROMBIN TIME PATIENT 13.9 SEC (12.2-14.7)
[2021-04-01 01:26] LABS: ALBUMIN 4.3 GM/DL (3.2-4.5); POTASSIUM 4.1 MMOL/L (3.6-5.0)
[2021-04-01 01:28] LABS: CALCIUM 9.2 MG/DL (8.5-10.1)
[2021-04-01 01:29] LABS: TOTAL PROTEIN 7.5 GM/DL (6.4-8.2)
[2021-04-01 01:31] LABS: BILIRUBIN,TOTAL 0.5 MG/DL (0.1-1.0)
[2021-04-01 01:32] LABS: CREATININE SERUM 0.77 MG/DL (0.60-1.30)
[2021-04-01 01:35] LABS: MAGNESIUM 1.7 MG/DL (1.6-2.4)
[2021-04-01 01:44] LABS: CREATINE KINASE MB 1.3 NG/ML (<6.6)
--- NOTE | 2021-04-01 02:16 | ED Cardiac General ---
History of Present Illness General Chief Complaint: Chest Pain Stated Complaint: CP,SOB,COUGH Nursing Triage Note: LEFT SIDED CHEST PAIN SINCE 2229, PAINFUL SWALLOWING, SUBJECTIVE FEVER, BODY ACHE. 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 Allergies and Home Medications Allergies Coded Allergies: ibuprofen (Verified Allergy, Unknown, 08/27/19) Patient Home Medication List Alprazolam (Alprazolam) 0.5 Mg Tablet, 0.5 MG PO TID PRN for ANXIETY, (Reported) Entered as Reported by: BENEDICT VELAZQUEZ on 08/28/19 1241 Aspirin (Aspirin EC) 81 Mg Tablet.dr, 81 MG PO DAILY, (Reported) Entered as Reported by: BENEDICT VELAZQUEZ on 10/21/19 08 Atorvastatin Calcium (Atorvastatin Calcium) 40 Mg Tablet, 40 MG PO HS, (Reported) Entered as Reported by: BENEDICT VELAZQUEZ on 10/21/19 08 Celecoxib (Celecoxib) 200 Mg Capsule, 200 MG PO BID, (Reported) Entered as Reported by: BENEDICT VELAZQUEZ on 08/28/19 124 Cholecalciferol (Vitamin D3) (Vitamin D3) 125 Mcg Capsule, 125 MCG PO DAILY, (Reported) Entered as Reported by: BENEDICT VELAZQUEZ on 10/21/19 08 Clopidogrel Bisulfate (Plavix) 75 Mg Tablet, 75 MG PO DAILY, (Reported) Entered as Reported by: BENEDICT VELAZQUEZ on 10/21/19 08 Cyanocobalamin (Vitamin B-12) (Vitamin B12) 2,500 Mcg Tab.chew, 2,500 MCG PO DAILY, (Reported) Entered as Reported by: BENEDICT VELAZQUEZ on 10/21/19 08 Ergocalciferol (Vitamin D2) (Vitamin D2) 1,250 Mcg Capsule, 1,250 MG PO SATURDAY, (Reported) Entered as Reported by: BENEDICT VELAZQUEZ on 08/28/19 124 Gemfibrozil (Gemfibrozil) 600 Mg Tablet, 600 MG PO BID, (Reported) Entered as Reported by: BENEDICT VELAZQUEZ on 10/21/19 08 Icosapent Ethyl (Vascepa) 1 Gm Capsule, 1 GM PO BID Prescribed by: ANNI AMOS on 10/21/19 0843 Iron,Carbonyl (Iron Chews) 15 Mg Tab.chew, 15 MG PO DAILY, (Reported) Entered as Reported by: BENEDICT VELAZQUEZ on 10/21/19 08 Isosorbide Mononitrate (Isosorbide Mononitrate ER) 30 Mg Tab.er.24h, 30 MG PO DAILY Prescribed by: ANNI AMOS on 10/21/19 08 Losartan Potassium (Losartan Potassium) 25 Mg Tablet, 25 MG PO DAILY Prescribed by: ANNI AMOS on 10/21/19 08 Metoprolol Tartrate (Metoprolol Tartrate) 50 Mg Tablet, 50 MG PO BID, (Reported) Entered as Reported by: BENEDICT VELAZQUEZ on 10/21/19 08 [place] 3 Polyunsat Fatty Acids (Fish Oil 1,000 mg Capsule) 1,000 Mg Cap, 1,000 MG PO BID, (Reported) Entered as Reported by: BENEDICT VELAZQUEZ on 10/21/19808 Ondansetron (Ondansetron Odt) 4 Mg Tab.rapdis, 4 MG PO Q4- 6H PRN for NAUSEA/VOMITING-1ST LINE, (Reported) Entered as Reported by: BENEDICT VELAZQUEZ on 08/28/19 124 Pantoprazole Sodium (Pantoprazole Sodium) 40 Mg Tablet.dr, 40 MG PO DAILY, (Reported) Entered as Reported by: BENEDICT VELAZQUEZ on 08/28/19 124 Promethazine HCl (Promethazine Tablet) 25 Mg Tablet, 25 MG PO Q4 -6H PRN for NAUSEA/VOMITING-2ND LINE, (Reported) Entered as Reported by: BENEDICT VELAZQUEZ on 08/28/19 124 Tramadol HCl (Tramadol HCl) 50 Mg Tablet, 50-100 MG PO TID PRN for PAIN-MODERATE (5-7), (Reported) Entered as Reported by: BENEDICT VELAZQUEZ on 10/21/19 08 Zolpidem Tartrate (Ambien) 10 Mg Tablet, 10 MG PO HS PRN for SLEEP, (Reported) Entered as Reported by: BENEDICT VELAZQUEZ on 08/28/19 124 [Biest] , (Reported) Entered as Reported by: FADI BURR on 08/28/19 0642 Past Yjcuaam-Zhkrci-Bgmfxi Hx Patient Social History Tobacco Use?: No Substance use?: No Alcohol Use?: No Pt feels they are or have been: No Seasonal Allergies Seasonal Allergies: No Past Medical History Coronary Stent Respiratory: No Cardiac: Yes Coronary Artery Disease, Hypertension 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 Physical Exam Vital Signs Vital Signs - First Documented 04/01/21 01:11 Temp 37.5 Pulse 74 Resp 18 B/P (MAP) 157/79 (105) Pulse Ox 26 O2 Delivery Room Air Capillary Refill : Less Than 3 Seconds Height, Weight, BMI Height: '" Weight: lbs. oz. kg; 39.00 BMI Method: Progress/Results/Core Measures Results/Orders Lab Results Laboratory Tests Test 04/01/21 01:02 04/01/21 01:05 Range/Units White Blood Count 9.3 4.3-11.0 10^3/uL Red Blood Count 4.59 3.80-5.11 10^6/uL Hemoglobin 13.3 11.5-16.0 g/dL Hematocrit 40 35-52 % Mean Corpuscular Volume 87 80-99 fL Mean Corpuscular Hemoglobin 29 25-34 pg Mean Corpuscular Hemoglobin Concent 33 32-36 g/dL Red Cell Distribution Width 12.5 10.0-14.5 % Platelet Count 198 130-400 10^3/uL Mean Platelet Volume 9.8 9.0-12.2 fL Immature Granulocyte % (Auto) 0 % Neutrophils (%) (Auto) 86 H 42-75 % Lymphocytes (%) (Auto) 7 L 12-44 % Monocytes (%) (Auto) 5 0-12 % Eosinophils (%) (Auto) 2 0-10 % Basophils (%) (Auto) 0 0-10 % Neutrophils # (Auto) 8.0 H 1.8-7.8 10^3/uL Lymphocytes # (Auto) 0.7 L 1.0-4.0 10^3/uL Monocytes # (Auto) 0.5 0.0-1.0 10^3/uL Eosinophils # (Auto) 0.2 0.0-0.3 10^3/uL Basophils # (Auto) 0.0 0.0-0.1 10^3/uL Immature Granulocyte # (Auto) 0.0 0.0-0.1 10^3/uL Erythrocyte Sedimentation Rate 18 0-30 MM/HR Prothrombin Time 13.9 12.2-14.7 SEC INR Comment 1.0 0.8-1.4 Activated Partial Thromboplast Time 29 24-35 SEC D-Dimer < 0.27 0.00-0.49 UG/ML Sodium Level 134 L 135-145 MMOL/L Potassium Level 4.1 3.6-5.0 MMOL/L Chloride Level 101 98-107 MMOL/L Carbon Dioxide Level 24 21-32 MMOL/L Anion Gap 9 5-14 MMOL/L Blood Urea Nitrogen 18 7-18 MG/DL Creatinine 0.77 0.60-1.30 MG/DL Estimat Glomerular Filtration Rate 89 BUN/Creatinine Ratio 23 Glucose Level 146 H 70-105 MG/DL Calcium Level 9.2 8.5-10.1 MG/DL Corrected Calcium 9.0 8.5-10.1 MG/DL Magnesium Level 1.7 1.6-2.4 MG/DL Total Bilirubin 0.5 0.1-1.0 MG/DL Aspartate Amino Transf (AST/SGOT) 16 5-34 U/L Alanine Aminotransferase (ALT/SGPT) 25 0-55 U/L Alkaline Phosphatase 70 40-136 U/L Lactate Dehydrogenase 193 125-220 U/L Total Creatine Kinase 78 29-168 U/L Creatine Kinase MB 1.3 <6.6 NG/ML Myoglobin 29.7 10.0-92.0 NG/ML Troponin I < 0.028 <0.028 NG/ML C-Reactive Protein High Sensitivity 1.22 H 0.00-0.50 MG/DL B-Type Natriuretic Peptide 90.7 <100.0 PG/ML Total Protein 7.5 6.4-8.2 GM/DL Albumin 4.3 3.2-4.5 GM/DL Amylase Level 24 L 25-125 U/L Lipase 55 8-78 U/L Procalcitonin 0.02 <0.10 NG/ML Influenza Type A (RT-PCR) Not Detected Not Detecte Influenza Type B (RT-PCR) Not Detected Not Detecte SARS-CoV-2 RNA (RT-PCR) Detected H Not Detecte My Orders Orders - MICHELLE POWELL DO Ed Iv/Invasive Line Start (04/01/21 01:01) Ekg Tracing (04/01/21 01:01) O2 (04/01/21 01:01) Monitor-Rhythm Ecg Trace Only (04/01/21 01:01) Cbc With Automated Diff (04/01/21 01:01) Magnesium (04/01/21 01:01) Chest 1 View, Ap/Pa Only (04/01/21 01:01) Ekg Tracing (04/01/21 01:01) Comprehensive Metabolic Panel (04/01/21 01:01) Myoglobin Serum (04/01/21 01:01) Protime With Inr (04/01/21 01:01) Partial Thromboplastin Time (04/01/21 01:01) O2 (04/01/21 01:01) Ed Iv/Invasive Line Start (04/01/21 01:01) Creatine Kinase (04/01/21 01:01) Creatine Kinase Mb (04/01/21 01:01) Lipase (04/01/21 01:01) Amylase (04/01/21 01:01) Bnp Hay (04/01/21 01:01) Fibrin Degradation Products (04/01/21 01:01) Troponin I [place] (04/01/21 01:01) Aspirin Chewable Tablet (Baby Aspirin Ch (04/01/21 01:15) Procalcitonin (Pct) (04/01/21 01:01) Hs C Reactive Protein (04/01/21 01:01) Erythrocyte Sedimentation Rate (04/01/21 01:01) LDH (04/01/21 01:01) Covid 19 Inhouse Test (04/01/21 01:01) Influenza A And B By Pcr (04/01/21 01:01) Isolation Central Supply Req (04/01/21 01:01) Medications Given in ED Current Medications Medications Dose Ordered Sig/David Route Start Time Stop Time Status Last Admin Dose Admin Aspirin 324 mg ONCE ONCE PO 04/01/21 01:15 04/01/21 01:16 DC 04/01/21 01:09 324 MG Vital Signs/I&O 04/01/21 01:11 Temp 37.5 Pulse 74 Resp 18 B/P (MAP) 157/79 (105) Pulse Ox 26 O2 Delivery Room Air Blood Pressure Mean: 105 Departure Impression Primary Impression: COVID-19 virus infection Disposition: 01 HOME, SELF-CARE Condition: Improved Departure-Patient Inst. Decision time for Depature: 02:10 Referrals: NO,LOCAL PHYSICIAN (PCP/Family) Primary Care Physician Patient Instructions: COVID-19 ED, Preventing the Spread of an Infectious Disease, Sotrovimab FDA Fact Sheet Add. Discharge Instructions: LOTS OF CLEAR LIQUIDS TYLENOL NEEDED FOR PAIN OVER THE COUNTER MEDICATIONS FOR COUGH AND [facility] WILL CONTACT YOU REGARDING WHETHER YOU ARE CANDIDATE FOR MONOCLONAL ANTIBODIES, IF THEY ARE AVAILABLE QUARANTINE FOR 5 DAYS--YOURSELF AND ALL HOUSEHOLD MEMBERS, THEN YOU MAY RETURN TO WORK WEARING A MASK AT ALL TIMES, IF YOU ARE HAVING IMPROVING SYMPTOMS AND HAVE BEEN FEVER FREE FOR OVER 24 HOURS RETURN TO ER IF SYMPTOMS WORSEN, OR FOLLOW UP WITH YOUR DR IN 5-7 DAYS IF NO IMPROVEMENT All discharge instructions reviewed with patient and/or family. Voiced understanding. Work/School Note: Work Release Form Date Seen in the Emergency Department: Apr 01, 2021 Return to Work: Apr 07, 2021 Restrictions: Return-No Fever (24hrs) MICHELLE POWELL DO Apr 01, 2021 02:16
[2021-04-01 02:23] VITALS: BP 147/79
--- NOTE | 2021-04-01 07:09 | Diagnostic Imaging Report ---
INDICATION: Chest pain. TIME OF EXAM: 2:06 AM CORRELATION is made with prior chest 10/21/2019. FINDINGS: The heart size is normal. The pulmonary vascularity is unremarkable. The lungs are clear. No infiltrate, effusion or pneumothorax is detected. IMPRESSION: No acute cardiopulmonary process is detected. Dictated by: Dictated on workstation # [id number]
== END 2021-04-01 02:26 | disposition home or self-care (01) ==
LOC: EDUNIT# 00:54 → ER 00:57
DX: U07.1 COVID-19 (principal); I10 Essential (primary) hypertension; I25.10 Atherosclerotic heart disease of native coronary artery without angina pectoris; Z79.01 Long term (current) use of anticoagulants; Z79.82 Long term (current) use of aspirin; Z79.899 Other long term (current) drug therapy
CPT/HCPCS: 36415; 71045; 80053; 82150; 82550; 82553; 83615; 83690; 83735; 83874; 83880; 84145; 84484; 85025; 85379; 85610; 85652; 85730; 86141; 87636; 93005; 93041

== ENCOUNTER → 2021-12-11 | Outpatient (CLI) | payer BC ==
[~2021-12-11] MED LIST changes: +RT-ALBUTEROL SULF 2.5 MG/3 ML PRE-MIX VIAL INH ONE
== END ==
LOC: RT 13:00
PROVIDERS: ATTEND Internal Medicine Cardiovascular Disease
DX: R06.09 Other forms of dyspnea (principal)
CPT/HCPCS: 94060; 94726; 94729

== ENCOUNTER → 2023-01-02 | Outpatient (CLI) | payer BC ==
[~2023-01-02] MED LIST changes: +CATHETER FLUSH 10 ML SYR IVP PRN; -CELE-63 PO; +CELE-91 PO; +CLOP-31 PO; -CLOP75TA69 PO; +REGADENOSON 0.4 MG/5 ML SYR IV ONE; -RT-ALBUTEROL SULF 2.5 MG/3 ML PRE-MIX VIAL INH ONE
[2023-01-02 15:30] VITALS: BP 113/82
--- NOTE | 2023-01-02 15:30 | Cardiology Stress Test Report ---
Stress Test Report Date of Procedure/Referring: Date of Procedure: Jan 02, 2023 PCP Marco Kothari Admitting Physician Admitting Physician: Attending Physician: Jenny Juarez MD Baseline Heart Rate: 6 Baseline Blood Pressure: Blood Pressure Systolic: 113 Blood Pressure Diastolic: 82 Baseline EKG: Baseline EKG: NSR Summary After explaining the procedure to the patient, she signed a consent and then brought to the stress nuclear laboratory. Patient received 0.4 mg Lexiscan for stress test, ECG, heart rate and blood pressure were monitored continuously. Resting and stress dose of radio tracer were injected, imaging was acquired and reviewed in short axis, horizontal long axis and vertical long axis views. TID: 1.19 SSS: 2 SDS: 2 EF: 68 Patient tolerated Lexiscan well Breast attenuation with mild decrease uptake at the mid anterior wall with mild reversibility, overall no significant ischemia or infarction noted on SPECT images Normal left ventricular size, ejection fraction 68% CC PRETTY Meier BASHAR J MD Jan 02, 2023 15:30
== END ==
LOC: CARD 11:43
PROVIDERS: ATTEND Internal Medicine Cardiovascular Disease
DX: R06.09 Other forms of dyspnea (principal)
CPT/HCPCS: 78452; 93017; A9502; C8929; 93306